=== PATIENT | male | born 1935 | race Caucasian/White ===

== ENCOUNTER 2021-09-16 00:59 | Emergency (ER) | payer MEDICARE ==
[2021-09-16 01:05] VITALS: BP 87/67
[2021-09-16] MEDS ORDERED: NS IV 1000 ML 1,000 ML IV ONE (01:15)
--- NOTE | 2021-09-16 01:30 | ED GU-Male ---
General Stated Complaint: CATHETER ISSUES Source: patient Exam Limitations: physical impairment (Patient with advanced dementia but answering simple questions and following simple commands) History of Present Illness Date Seen by Provider: Sep 16, 2021 Time Seen by Provider: 01:10 Initial Comments Per [facility]dc and EMS report, patient pulled out his catheter and they are concerned related to that. Does have bruising to the penis and testicles as well as the left leg after having tib-fib fracture and repair. He has chronic catheter for micturition and BPH. Patient does have history of hypotension and is on fludrocortisone. He is denying complaints currently. Does have some blood at the meatus. Timing/Duration: this morning Severity/Quality: mild (Bleeding and mild swelling without significant pain reported) Location: urethral Prior Genitourinary Problems: recent trauma Associated Symptoms: other (Hematuria noted) Allergies and Home Medications Allergies Coded Allergies: amoxicillin (Verified Allergy, Unknown, 09/16/21) clavulanic acid (Verified Allergy, Unknown, 09/16/21) famotidine (Verified Allergy, Unknown, 09/16/21) ketamine (Verified Allergy, Unknown, 09/16/21) lisinopril (Verified Allergy, Unknown, 09/16/21) rofecoxib (Verified Allergy, Unknown, 09/16/21) Patient Home Medication List Home Medication List Reviewed: Yes Review of Systems Review of Systems Constitutional: see HPI; No fever Genitourinary: see HPI, hematuria; denies pain; other (Penile swelling and bruising) Skin: change in color (Bruising left leg and scrotum) Review of systems limited due to patient's underlying mental status with advanced dementia. Past Zofbmze-Ahqiqb-Vedqmo Hx Patient Social History Tobacco Use?: No Past Medical History Surgeries: Yes Orthopedic Cardiac: Yes (Hypotension) Neurological: Yes Dementia Genitourinary: Yes Prostate Problems Family Medical History Reviewed and Corrections made Physical Exam Vital Signs Vital Signs - First Documented 09/16/21 01:05 Temp 36.8 Pulse 93 Resp 18 B/P (MAP) 87/67 (74) Pulse Ox 99 O2 Delivery Room Air Capillary Refill : Height, Weight, BMI Height: '" Weight: lbs. oz. kg; BMI Method: General Appearance: WD/WN, no apparent distress Neck: full range of motion, supple Cardiovascular: regular rate, rhythm, no murmur Respiratory: lungs clear, normal breath sounds Gastrointestinal: non tender, soft Male: other (Blood at meatus. Penile swelling. Ecchymosis noted to penis especially proximally into the scrotum.) Neurologic/Psychiatric: alert, other (Oriented to self only) Skin: warm/dry, ecchymosis (Ecchymosis as described above) Progress/Results/Core Measures Suspected Sepsis SIRS Temperature: Pulse: Respiratory Rate: Laboratory Tests 09/16/21 01:18: White Blood Count 14.7H Blood Pressure / Mean: Laboratory Tests 09/16/21 01:18: Creatinine 0.86, Platelet Count 275, Total Bilirubin 1.9H Results/Orders Lab Results Laboratory Tests Test 09/16/21 01:15 09/16/21 01:18 Range/Units Urine Color RED H Urine Clarity CLEAR Urine pH 6.5 5-9 Urine Specific English 1.025 H 1.016-1.022 Urine Protein 3+ H NEGATIVE Urine Glucose (UA) NEGATIVE NEGATIVE Urine Ketones 1+ H NEGATIVE Urine Nitrite POSITIVE H NEGATIVE Urine Bilirubin NEGATIVE NEGATIVE Urine Urobilinogen 2.0 < = 1.0 MG/DL Urine Leukocyte Esterase 2+ H NEGATIVE Urine RBC (Auto) 3+ H NEGATIVE Urine RBC 50-100 H /HPF Urine WBC 25-50 H /HPF Urine Squamous Epithelial Cells 0-2 /HPF Urine Crystals NONE /LPF Urine Bacteria LARGE H /HPF Urine Casts NONE /LPF Urine Mucus NEGATIVE /LPF Urine Culture Indicated YES White Blood Count 14.7 H 4.3-11.0 10^3/uL Red Blood Count 2.59 L 4.30-5.52 10^6/uL Hemoglobin 8.1 L 13.3-17.7 g/dL Hematocrit 25 L 40-54 % Mean Corpuscular Volume 96 80-99 fL Mean Corpuscular Hemoglobin 31 25-34 pg Mean Corpuscular Hemoglobin Concent 33 32-36 g/dL Red Cell Distribution Width 13.2 10.0-14.5 % Platelet Count 275 130-400 10^3/uL Mean Platelet Volume 9.7 9.0-12.2 fL Immature Granulocyte % (Auto) 1 % Neutrophils (%) (Auto) 86 H 42-75 % Lymphocytes (%) (Auto) 3 L 12-44 % Monocytes (%) (Auto) 9 0-12 % Eosinophils (%) (Auto) 1 0-10 % Basophils (%) (Auto) 0 0-10 % Neutrophils # (Auto) 12.7 H 1.8-7.8 10^3/uL Lymphocytes # (Auto) 0.5 L 1.0-4.0 10^3/uL Monocytes # (Auto) 1.3 H 0.0-1.0 10^3/uL Eosinophils # (Auto) 0.1 0.0-0.3 10^3/uL Basophils # (Auto) 0.0 0.0-0.1 10^3/uL Immature Granulocyte # (Auto) 0.2 H 0.0-0.1 10^3/uL Neutrophils % (Manual) 96 % Lymphocytes % (Manual) 1 % Monocytes % (Manual) 2 % Eosinophils % (Manual) 1 % Polychromasia SLIGHT Microcytosis SLIGHT Sodium Level 137 135-145 MMOL/L Potassium Level 3.5 L 3.6-5.0 MMOL/L Chloride Level 103 98-107 MMOL/L Carbon Dioxide Level 21 21-32 MMOL/L Anion Gap 13 5-14 MMOL/L Blood Urea Nitrogen 20 H 7-18 MG/DL Creatinine 0.86 0.60-1.30 MG/DL Estimat Glomerular Filtration Rate 84 BUN/Creatinine Ratio 23 Glucose Level 146 H 70-105 MG/DL Calcium Level 8.3 L 8.5-10.1 MG/DL Corrected Calcium 9.3 8.5-10.1 MG/DL Total Bilirubin 1.9 H 0.1-1.0 MG/DL Aspartate Amino Transf (AST/SGOT) 42 H 5-34 U/L Alanine Aminotransferase (ALT/SGPT) 29 0-55 U/L Alkaline Phosphatase 98 40-136 U/L Total Protein 4.8 L 6.4-8.2 GM/DL Albumin 2.7 L 3.2-4.5 GM/DL My Orders Orders - VICENTE JONES MD Cbc With Automated Diff (09/16/21 01:13) Comprehensive Metabolic Panel (09/16/21 01:13) Ua Culture If Indicated (09/16/21 01:13) Ed Iv/Invasive Line Start (09/16/21 01:13) Ns Iv 1000 Ml (Sodium Chloride 0.9%) (09/16/21 01:15) Manual Differential (09/16/21 01:18) Urine Culture (09/16/21 01:15) Ceftriaxone 1 Gm Pre-Mix (Rocephin 1 Gm (09/16/21 02:05) Medications Given in ED Current Medications Medications Dose Ordered Sig/Darek Route Start Time Stop Time Status Last Admin Dose Admin Sodium Chloride 1,000 ml @ 0 mls/hr Q0M ONCE IV 09/16/21 01:15 09/16/21 01:17 DC 09/16/21 01:30 1,000 MLS/HR Vital Signs/I&O 09/16/21 01:05 Temp 36.8 Pulse 93 Resp 18 B/P (MAP) 87/67 (74) Pulse Ox 99 O2 Delivery Room Air Capillary Refill : Progress Note : Progress Note Seen and evaluated. Initial blood pressure borderline with systolic blood pressure 90. He does have history of hypertension. He did pull his catheter out. Nurse was concerned about balloon entrapment although no indication of this. Does have blood at the meatus with some bloody drainage. We will replace the catheter due to this and check basic labs and give normal saline 1 L bolus to flush bladder of blood to prevent clots. We will also monitor for decreased bloody output. This did decrease rapidly after insertion of the August catheter. Monitor patient. 0330: UTI noted. Rocephin 1 g IV given. Over all his doing well and tolerating catheter well. He is a candidate for outpatient treatment. We will continue treatment of his urinary tract infection with cephalexin. Discharged back to [facility] with return precautions. Report given to [facility]. Departure Impression Primary Impression: Urinary tract infection Qualified Codes: N30.01 - Acute cystitis with hematuria Additional Impression: August catheter problem Qualified Codes: T83.9XXA - Unspecified complication of genitourinary prosthetic device, implant and graft, initial encounter Disposition: HOME, SELF-CARE Condition: Stable Departure-Patient Inst. Decision time for Depature: 03:31 Referrals: JOANN CORNELIUS MD (PCP/Family) Primary Care Physician Patient Instructions: How to Care for Your August Catheter, Male, Urinary Tract Infection, Adult ED Add. Discharge Instructions: Please frequently redirect resident to prevent pulling out catheter. Patient does have urinary tract infection and antibiotics were started in the emergency department. Please continue prescription as ordered. Follow-up with primary care doctor later this week or early next week for recheck and further evaluation. Encourage plenty of fluids. Return for worse pain, fever, vomiting, weakness, breathing problems or other concerns as needed. Scripts Cephalexin (Cephalexin) 500 Mg Capsule 500 MG PO BID for 5 Days, #10 CAP 0 Refills Prov: VICENTE JONES MD 09/16/21 VICENTE JONES MD Sep 16, 2021 01:30
[2021-09-16 01:32] LABS: BASOPHILS % (AUTO) 0 % (0-10); EOSINOPHILS # (AUTO) 0.1 10^3/uL (0.0-0.3); EOSINOPHILS % (AUTO) 1 % (0-10); HEMATOCRIT 25 % (40-54); HEMOGLOBIN 8.1 g/dL (13.3-17.7); LYMPHOCYTES # (AUTO) 0.5 10^3/uL (1.0-4.0); LYMPHOCYTES % (AUTO) 3 % (12-44); MEAN CORPUSCULAR HEMOGLOBIN 31 pg (25-34); MEAN CORPUSCULAR HGB CONC 33 g/dL (32-36); MEAN CORPUSCULAR VOLUME 96 fL (80-99); MEAN PLATELET VOLUME 9.7 fL (9.0-12.2); MONOCYTES # (AUTO) 1.3 10^3/uL (0.0-1.0); MONOCYTES % (AUTO) 9 % (0-12); NEUTROPHILS # (AUTO) 12.7 10^3/uL (1.8-7.8); NEUTROPHILS % (AUTO) 86 % (42-75); PLATELET COUNT 275 10^3/uL (130-400); WHITE BLOOD COUNT 14.7 10^3/uL (4.3-11.0)
[2021-09-16 01:36] LABS: BILIRUBIN,URINE NEGATIVE (NEGATIVE); CLARITY,URINE CLEAR; COLOR,URINE RED; GLUCOSE, URINE (UA) NEGATIVE (NEGATIVE); KETONES,URINE 1+ (NEGATIVE); LEUKOCYTE ESTERASE ,URINE 2+ (NEGATIVE); NITRITE,URINE POSITIVE (NEGATIVE); PH,URINE 6.5 (5-9); PROTEIN,URINE 3+ (NEGATIVE)
[2021-09-16 01:44] LABS: BACTERIA,URINE LARGE /HPF; RBC,URINE 50-100 /HPF; SQUAMOUS EPITHELIAL CELL,UR 0-2 /HPF; WBC,URINE 25-50 /HPF
[2021-09-16 01:55] LABS: ALBUMIN 2.7 GM/DL (3.2-4.5); POTASSIUM 3.5 MMOL/L (3.6-5.0)
[2021-09-16 01:56] LABS: CALCIUM 8.3 MG/DL (8.5-10.1)
[2021-09-16 01:58] LABS: TOTAL PROTEIN 4.8 GM/DL (6.4-8.2)
[2021-09-16 01:59] LABS: BILIRUBIN,TOTAL 1.9 MG/DL (0.1-1.0)
[2021-09-16 02:01] LABS: CREATININE SERUM 0.86 MG/DL (0.60-1.30)
[2021-09-16] MEDS ORDERED: cefTRIAXone 1 GM PRE-MIX 50 ML IV STA (02:05)
[2021-09-16 02:12] LABS: EOSINOPHILS % (MANUAL) 1 %; LYMPHOCYTES % (MANUAL) 1 %; MICROCYTOSIS SLIGHT; MONOCYTES % (MANUAL) 2 %; NEUTROPHILS % (MANUAL) 96 %; POLYCHROMASIA SLIGHT
[2021-09-16] MEDS ORDERED: CEPH500C PO (03:30)
== END 2021-09-16 05:32 | disposition home or self-care (01) ==
LOC: EDUNIT# 00:59 → ER 01:01
DX: S30.21XA Contusion of penis, initial encounter (principal); N39.0 Urinary tract infection, site not specified; T83.098A Other mechanical complication of other urinary catheter, initial encounter; F03.90 Unspecified dementia, unspecified severity, without behavioral disturbance, psychotic disturbance, mood disturbance, and anxiety; X58.XXXA Exposure to other specified factors, initial encounter
CPT/HCPCS: 36415; 80053; 81000; 85007; 85027; 87088

== ENCOUNTER 2021-11-05 05:24 | Inpatient (IN) | payer MEDICARE ==
[~2021-11-05] VITALS: Ht 185.4 cm; Wt 75.6 kg
[2021-11-05] VITALS (10 sets, daily range): BP systolic 91–151; BP diastolic 54–76
[~2021-11-05 05:24] MED LIST: CEPH500C PO
--- NOTE | 2021-11-05 06:44 | ED Lower Extremity ---
General Chief Complaint: Lower Extremity Stated Complaint: FALL Source: patient Exam Limitations: no limitations (KURTIS DIAZ MD) History of Present Illness Date Seen by Provider: Nov 05, 2021 Time Seen by Provider: 05:26 Initial Comments This 86-year-old gentleman presents to the emergency room with right proximal thigh pain after falling out of bed. He arrives via EMS from the [facility]. No other injuries identified. Patient has notable dementia and is hard of hearing. (KURTIS DIAZ MD) Allergies and Home Medications Allergies Coded Allergies: amoxicillin (Verified Allergy, Unknown, 09/16/21) clavulanic acid (Verified Allergy, Unknown, 09/16/21) famotidine (Verified Allergy, Unknown, 09/16/21) ketamine (Verified Allergy, Unknown, 09/16/21) lisinopril (Verified Allergy, Unknown, 09/16/21) rofecoxib (Verified Allergy, Unknown, 09/16/21) Patient Home Medication List Home Medication List Reviewed: Yes (KURTIS DIAZ MD) Cephalexin (Cephalexin) 500 Mg Capsule, 500 MG PO BID Prescribed by: VICENTE JONES on 09/16/21 0330 Review of Systems Constitutional: no symptoms reported EENTM: no symptoms reported Respiratory: no symptoms reported Cardiovascular: no symptoms reported Gastrointestinal: no symptoms reported Musculoskeletal: see HPI Skin: no symptoms reported Psychiatric/Neurological: See HPI (KURTIS DIAZ MD) Past Ufpzjhy-Lbqmwz-Taetwb Hx Patient Social History Tobacco Use?: No Use of E-Cig and/or Vaping dev: No Substance use?: No Alcohol Use?: No Pt feels they are or have been: No (KURTIS DIAZ MD) Immunizations Up To Date Influenza Vaccine Up-to-Date: Yes; Up-to-Date (KURTIS DIAZ MD) Past Medical History Surgeries: Yes Orthopedic Cardiac: Yes (Hypotension) Neurological: Yes Dementia Genitourinary: Yes Prostate Problems Gastrointestinal: No Musculoskeletal: No Endocrine: No HEENT: Yes Hearing Impairment: Hard of Hearing Cancer: No Psychosocial: No (KURTIS DIAZ MD) Physical Exam Vital Signs Vital Signs - First Documented 11/05/21 05:25 Temp 37.1 Pulse 100 Resp 18 B/P (MAP) 117/76 (90) Pulse Ox 98 O2 Delivery Room Air (VICENTE JONES MD) Vital Signs Capillary Refill : Less Than 3 Seconds (KURTIS DIAZ MD) Height, Weight, BMI Height: '" Weight: lbs. oz. kg; BMI Method: General Appearance: WD/WN, no apparent distress HEENT: PERRL/EOMI, normal ENT inspection Neck: normal inspection Cardiovascular: regular rate, rhythm, no edema, no murmur Respiratory: lungs clear, normal breath sounds, no respiratory distress Gastrointestinal: non tender, soft Back: normal inspection Hips: bilateral hip non-tender, bilateral hip normal inspection, bilateral hip other (No tenderness with palpation of the hip or pain with rotation of the hips) Legs: left leg non-tender; bilateral leg normal inspection; right leg other (Tenderness with palpation of the proximal right lateral thigh) Knees: bilateral knee non-tender, bilateral knee normal inspection, bilateral knee no evidence of injury Neurologic/Psychiatric: no motor/sensory deficits, alert Skin: normal color, warm/dry (KURTIS DIAZ MD) Progress/Results/Core Measures Results/Orders Lab Results Laboratory Tests Test 11/05/21 07:10 Range/Units White Blood Count 13.2 H 4.3-11.0 10^3/uL Red Blood Count 3.69 L 4.30-5.52 10^6/uL Hemoglobin 11.1 L 13.3-17.7 g/dL Hematocrit 35 L 40-54 % Mean Corpuscular Volume 94 80-99 fL Mean Corpuscular Hemoglobin 30 25-34 pg Mean Corpuscular Hemoglobin Concent 32 32-36 g/dL Red Cell Distribution Width 13.6 10.0-14.5 % Platelet Count 243 130-400 10^3/uL Mean Platelet Volume 10.1 9.0-12.2 fL Immature Granulocyte % (Auto) 1 % Neutrophils (%) (Auto) 86 H 42-75 % Lymphocytes (%) (Auto) 6 L 12-44 % Monocytes (%) (Auto) 7 0-12 % Eosinophils (%) (Auto) 0 0-10 % Basophils (%) (Auto) 0 0-10 % Neutrophils # (Auto) 11.3 H 1.8-7.8 10^3/uL Lymphocytes # (Auto) 0.8 L 1.0-4.0 10^3/uL Monocytes # (Auto) 0.9 0.0-1.0 10^3/uL Eosinophils # (Auto) 0.1 0.0-0.3 10^3/uL Basophils # (Auto) 0.1 0.0-0.1 10^3/uL Immature Granulocyte # (Auto) 0.1 0.0-0.1 10^3/uL Neutrophils % (Manual) 88 % Lymphocytes % (Manual) 6 % Monocytes % (Manual) 5 % Eosinophils % (Manual) 1 % Blood Morphology Comment NORMAL Sodium Level 142 135-145 MMOL/L Potassium Level 3.6 3.6-5.0 MMOL/L Chloride Level 105 98-107 MMOL/L Carbon Dioxide Level 23 21-32 MMOL/L Anion Gap 14 5-14 MMOL/L Blood Urea Nitrogen 15 7-18 MG/DL Creatinine 0.87 0.60-1.30 MG/DL Estimat Glomerular Filtration Rate 84 BUN/Creatinine Ratio 17 Glucose Level 123 H 70-105 MG/DL Calcium Level 8.7 8.5-10.1 MG/DL Corrected Calcium 9.4 8.5-10.1 MG/DL Total Bilirubin 0.7 0.1-1.0 MG/DL Aspartate Amino Transf (AST/SGOT) 17 5-34 U/L Alanine Aminotransferase (ALT/SGPT) 14 0-55 U/L Alkaline Phosphatase 181 H 40-136 U/L Total Protein 5.7 L 6.4-8.2 GM/DL Albumin 3.1 L 3.2-4.5 GM/DL (VICENTE JONES MD) My Orders Orders - VICENTE JONES MD Chest 1 View, Ap/Pa Only (11/05/21 06:50) Fentanyl Inj (Sublimaze Injection) (11/05/21 06:55) Cbc With Automated Diff (11/05/21 06:55) Comprehensive Metabolic Panel (11/05/21 06:55) Ed Iv/Invasive Line Start (11/05/21 06:55) Manual Differential (11/05/21 07:10) Fentanyl Inj (Sublimaze Injection) (11/05/21 07:32) Ekg Tracing (11/05/21 07:50) Ed Admission (Communication) (11/05/21 07:51) (VICENTE JONES MD) Vital Signs/I&O 11/05/21 05:25 Temp 37.1 Pulse 100 Resp 18 B/P (MAP) 117/76 (90) Pulse Ox 98 O2 Delivery Room Air (VICENTE JONES MD) Blood Pressure Mean: 90 Progress Progress Note : Progress Note 0650: Assumed care of the patient from Dr. Diaz pending x-ray. Monitor patient. 0740: We have given fentanyl 25 mcg IV and have repeated that with 50 mcg IV for pain. I have spoken with patient's daughter who is his durable power district attorney. I did let her know about the hip fracture on the right. She is agreeable to surgical intervention if required. I have paged Dr. Grider who is on-call. Pending his evaluation and callback. 0759: Patient has been accepted by medicine team, Dr. Tran for admission, inpatient status with Dr. Grider on consult. He would like to take him to surgery today if medically cleared. I have added EKG. Labs are pending. He is more comfortable currently. Admit to [facility] floor, inpatient status, n.p.o. (VICENTE JONES MD) Initial ECG Impression Date: Nov 05, 2021 Initial ECG Impression Time: 08:06 Initial ECG Rate: 78 Comment Sinus rhythm with leftward axis. No evidence of ST elevation MT. Interpreted by me. No previous available for comparison. (VICENTE JONES MD) Diagnostic Imaging Diagonstic Imaging: Xray Plain Films/CT/US/NM/MRI: femur Comments [facility] [place], [place] NAME: AYANA MCMULLEN [facility] REC#: [id number] PT STATUS: REG ER : 1935 PHYSICIAN: KURTIS DIAZ MD ADMIT DATE: 11/05/21/ER Draft Date of Exam:11/05/21 FEMUR, RIGHT, 2 VIEWS Right femur at 6:36. Indication: Fell AP and lateral views were obtained. There are no prior studies for comparison. There is a severely comminuted impacted intertrochanteric fracture of the right femur. The lesser trochanter has also been avulsed and the lesser trochanter fragment is fractured as well. In addition there is a 1.6 x 2.3 cm sclerotic focus in the intertrochanteric region. This bony lesion is of uncertain etiology although is most likely benign. I do not feel that this is a pathologic fracture. There is no acute bony abnormality noted otherwise. There is moderate degenerative disease of the hip joint and moderately severe degenerative disease of the medial compartment of the knee joint. There is also mild narrowing of the lateral compartment of the patellofemoral space. The soft tissues are unremarkable. IMPRESSION: 1. There is a comminuted impacted fracture of the the intertrochanteric region of the right femur. There is no acute bony abnormality noted otherwise. 2. The small sclerotic focus in the intertrochanteric region is of uncertain etiology although most likely benign. This fracture is not felt to be pathologic. Dictated on workstation # [id number] Dict: 11/05/21702 Trans: 11/05/21709 [id number] [id number] Interpreted by: YADI LIN MD Electronically signed by: Reviewed: Reviewed by Ne Diagonstic Imaging: Xray Plain Films/CT/US/NM/MRI: pelvis [facility] [place] [place] NAME: AYANA MCMULLEN [facility] REC#: [id number] PT STATUS: REG ER : 1935 PHYSICIAN: KURTIS DIAZ MD ADMIT DATE: 11/05/21/ER Signed Date of Exam:11/05/21 PELVIS Indication: Pelvic pain AP view pelvis shows an intertrochanteric fracture of the right hip. Patient's had prior internal fixation of left hip. Pelvic ring is intact. IMPRESSION: Comminuted intertrochanteric fracture of the right hip Dictated by: Dictated on workstation # [id number] Dict: 11/05/21703 Trans: 11/05/21704 TCB [id number] Interpreted by: VICENTE POWELL MD Electronically signed by: VICENTE POWELL MD 11/05/21704 Reviewed: Reviewed by Ne Diagonstic Imaging: Xray Plain Films/CT/US/NM/MRI: chest [facility] [place], [place] NAME: AYANA MCMULLEN [facility] REC#: [id number] PT STATUS: REG ER : 1935 PHYSICIAN: VICENTE JONES MD ADMIT DATE: 11/05/21/ER Signed Date of Exam:11/05/21 CHEST 1 VIEW, AP/PA ONLY INDICATION: Hip fracture Portable chest 7:44 AM Heart size and pulmonary vascularity are normal. Lungs are clear. There are no effusions or pneumothoraces. IMPRESSION: No acute abnormalities in the chest. Dictated by: Dictated on workstation # [id number] Dict: 11/05/21 0746 Trans: 11/05/21 0749 [facility] [id number] Interpreted by: VICENTE POWELL MD Electronically signed by: VICENTE POWELL MD 11/05/21 0749 (VICENTE JONES MD) Departure Communication (Admissions) Time/Spoke to Admitting Phy: 07:49 Time/Spoke to Consulting Phy: 07:41 (VICENTE JONES MD) Impression Primary Impression: Hip fracture Qualified Codes: S72.001A - Fracture of unspecified part of neck of right femur, initial encounter for closed fracture Disposition: ADMITTED INPATIENT Condition: Stable Admissions Decision to Admit Reason: Admit from ER (General) Decision to Admit/Date: Nov 05, 2021 Time/Decision to Admit Time: 07:41 (VICENTE JONES MD) Departure-Patient Inst. Referrals: JOANN CORNELIUS MD (PCP/Family) Primary Care Physician KURTIS DIAZ MD Nov 05, 2021 06:44 VICENTE JONES MD Nov 05, 2021 07:49
[2021-11-05] MEDS ORDERED: fentaNYL INJ 100 MCG/2 ML AMP IVP STA ×2 (06:55→07:32)
--- NOTE | 2021-11-05 07:06 | Diagnostic Imaging Report ---
Indication: Pelvic pain AP view pelvis shows an intertrochanteric fracture of the right hip. Patient's had prior internal fixation of left hip. Pelvic ring is intact. IMPRESSION: Comminuted intertrochanteric fracture of the right hip Dictated by: Dictated on workstation # [id number]
--- NOTE | 2021-11-05 07:10 | Diagnostic Imaging Report ---
Right femur at 6:36. Indication: Fell AP and lateral views were obtained. There are no prior studies for comparison. There is a severely comminuted impacted intertrochanteric fracture of the right femur. The lesser trochanter has also been avulsed and the lesser trochanter fragment is fractured as well. In addition there is a 1.6 x 2.3 cm sclerotic focus in the intertrochanteric region. This bony lesion is of uncertain etiology although is most likely benign. I do not feel that this is a pathologic fracture. There is no acute bony abnormality noted otherwise. There is moderate degenerative disease of the hip joint and moderately severe degenerative disease of the medial compartment of the knee joint. There is also mild narrowing of the lateral compartment of the patellofemoral space. The soft tissues are unremarkable. IMPRESSION: 1. There is a comminuted impacted fracture of the the intertrochanteric region of the right femur. There is no acute bony abnormality noted otherwise. 2. The small sclerotic focus in the intertrochanteric region is of uncertain etiology although most likely benign. This fracture is not felt to be pathologic. Dictated by: Dictated on workstation # [id number]
[2021-11-05 07:20] LABS: BASOPHILS # (AUTO) 0.1 10^3/uL (0.0-0.1); BASOPHILS % (AUTO) 0 % (0-10); EOSINOPHILS # (AUTO) 0.1 10^3/uL (0.0-0.3); EOSINOPHILS % (AUTO) 0 % (0-10); HEMATOCRIT 35 % (40-54); HEMOGLOBIN 11.1 g/dL (13.3-17.7); LYMPHOCYTES # (AUTO) 0.8 10^3/uL (1.0-4.0); LYMPHOCYTES % (AUTO) 6 % (12-44); MEAN CORPUSCULAR HEMOGLOBIN 30 pg (25-34); MEAN CORPUSCULAR HGB CONC 32 g/dL (32-36); MEAN CORPUSCULAR VOLUME 94 fL (80-99); MEAN PLATELET VOLUME 10.1 fL (9.0-12.2); MONOCYTES # (AUTO) 0.9 10^3/uL (0.0-1.0); MONOCYTES % (AUTO) 7 % (0-12); NEUTROPHILS # (AUTO) 11.3 10^3/uL (1.8-7.8); NEUTROPHILS % (AUTO) 86 % (42-75); PLATELET COUNT 243 10^3/uL (130-400); WHITE BLOOD COUNT 13.2 10^3/uL (4.3-11.0)
[2021-11-05 07:42] LABS: ALBUMIN 3.1 GM/DL (3.2-4.5); BILIRUBIN,TOTAL 0.7 MG/DL (0.1-1.0); CALCIUM 8.7 MG/DL (8.5-10.1); CREATININE SERUM 0.87 MG/DL (0.60-1.30); POTASSIUM 3.6 MMOL/L (3.6-5.0); TOTAL PROTEIN 5.7 GM/DL (6.4-8.2)
--- NOTE | 2021-11-05 07:48 | Diagnostic Imaging Report ---
INDICATION: Hip fracture Portable chest 7:44 AM Heart size and pulmonary vascularity are normal. Lungs are clear. There are no effusions or pneumothoraces. IMPRESSION: No acute abnormalities in the chest. Dictated by: Dictated on workstation # [id number]
[2021-11-05 08:14] LABS: EOSINOPHILS % (MANUAL) 1 %; LYMPHOCYTES % (MANUAL) 6 %; MONOCYTES % (MANUAL) 5 %; NEUTROPHILS % (MANUAL) 88 %
[2021-11-05 08:15] LABS: RBC MORPH NORMAL
[2021-11-05] MEDS ORDERED: CLINDAMYCIN 600 MG/50 ML IVPB 50 ML IV ONE (09:30)
[2021-11-05] MEDS ORDERED: ONDANSETRON 4 MG/2 ML (SDV) Z0FRAN IV PRN (09:45)
[2021-11-05] MEDS ORDERED: ANTACID SUSP 30 ML UDC (MYLANTA) PO PRN (09:45)
[2021-11-05] MEDS ORDERED: MELATONIN 3 MG TABLET PO PRN (09:45)
[2021-11-05] MEDS ORDERED: fentaNYL INJ 100 MCG/2 ML AMP IVP PRN (09:45)
[2021-11-05] MEDS ORDERED: ONDANSETRON 4 MG (ZOFRAN) ORAL DISSOLVE TAB PO PRN (09:45)
[2021-11-05] MEDS ORDERED: polyethylene glycoL POWDER 17 GM (MIRALAX) PACK PO PRN (09:45)
[2021-11-05] MEDS ORDERED: LACTATED RINGERS 1,000 ML IV SCH (09:45)
--- NOTE | 2021-11-05 10:06 | Consultation - Ortho ---
Consult - Ortho Subjective Date of Exam 11/05/21 Chief Complaint Right Hip Pain HPI/Events since last exam correction resident presented to ER after fall; ER evaluation found a displaced right intertrochanteric femur fracture. I was consulted to manage the fracture. Medical, Surgical History Surgeries: Yes Orthopedic Cardiac: Yes (Hypotension) Neurological: Yes Dementia Genitourinary: Yes Prostate Problems Gastrointestinal: No Musculoskeletal: No Endocrine: No HEENT: Yes Hearing Impairment: Hard of Hearing Cancer: No Psychosocial: No Social History Nonsmoker Family History Noncontributory Review of Systems - Allergies: Coded Allergies: amoxicillin (Verified Allergy, Unknown, 09/16/21) clavulanic acid (Verified Allergy, Unknown, 09/16/21) famotidine (Verified Allergy, Unknown, 09/16/21) ketamine (Verified Allergy, Unknown, 09/16/21) lisinopril (Verified Allergy, Unknown, 09/16/21) rofecoxib (Verified Allergy, Unknown, 09/16/21) Home Meds Active Scripts Cephalexin (Cephalexin) 500 Mg Capsule, 500 MG PO BID for 5 Days, #10 CAP 0 Refills Prov:VICENTE JONES MD 09/16/21 Objective Exam Right Hip: Skin intact, some shortening of limb, +DF of ankle, sensation grossly intact to light touch, distal pulses palpable Vital Signs Vital Signs Date Time Temp Pulse Resp B/P (MAP) Pulse Ox O2 Delivery O2 Flow Rate FiO2 11/05/21 09:38 36.4 80 20 94/55 (68) 99 Room Air 11/05/21 05:25 37.1 100 18 117/76 (90) 98 Room Air Lab Results Laboratory Tests 11/05/21 07:10: White Blood Count 13.2H, Red Blood Count 3.69L, Hemoglobin 11.1L, Hematocrit 35L , Mean Corpuscular Volume 94, Mean Corpuscular Hemoglobin 30, Mean Corpuscular Hemoglobin Concent 32, Red Cell Distribution Width 13.6, Platelet Count 243, Mean Platelet Volume 10.1, Immature Granulocyte % (Auto) 1, Neutrophils (%) (Auto) 86H, Lymphocytes (%) (Auto) 6L, Monocytes (%) (Auto) 7, Eosinophils (%) (Auto) 0, Basophils (%) (Auto) 0, Neutrophils # (Auto) 11.3H, Lymphocytes # (Auto) 0.8L, Monocytes # (Auto) 0.9, Eosinophils # (Auto) 0.1, Basophils # (Auto) 0.1, Immature Granulocyte # (Auto) 0.1, Neutrophils % (Manual) 88, Lymphocytes % (Manual) 6, Monocytes % (Manual) 5, Eosinophils % (Manual) 1, Blood Morphology Comment NORMAL, Sodium Level 142, Potassium Level 3.6, Chloride Level 105, Carbon Dioxide Level 23, Anion Gap 14, Blood Urea Nitrogen 15, Creatinine 0.87, Estimat Glomerular Filtration Rate 84, BUN/Creatinine Ratio 17, Glucose Level 123H, Calcium Level 8.7, Corrected Calcium 9.4, Total Bilirubin 0.7, Aspartate Amino Transf (AST/SGOT) 17, Alanine Aminotransferase (ALT/SGPT) 14, Alkaline Phosphatase 181H, Total Protein 5.7L, Albumin 3.1L Imaging X-rays from ER were reviewed and demonstrated a displaced right intertrochanteric femur fracture Assessment and Plan Assessment Displaced Right Intertrochanteric Femur Fracture Problem List Displaced Right Intertrochanteric Femur Fracture Plan I have recommended proceeding with reduction and fixation of the right IT fracture. Nature of the procedure, postoperative course, risks, and benefits were discussed with the patient's daughter who is his DPOA. Consent to be obtained. Plan to proceed with fixation today if medically ready. Final Diagonsis Displaced Right Intertrochanteric Femur Fracture Level of the visit: Level 3 (preop) ANIL MUJICA MD Nov 05, 2021 10:06
[2021-11-05] MEDS ORDERED: proPOfol 200 MG/20 ML (DIPRIVAN) VIAL IV ONE (10:25)
[2021-11-05] MEDS ORDERED: LACTATED RINGERS 1,000 ML IV PRN (10:30)
[2021-11-05] MEDS ORDERED: BUPIVACAINE 0.5% 30 ML (SENSORCAINE) VIAL ONE (11:27)
[2021-11-05] MEDS ORDERED: PHENYLEPHRINE 100 MCG/ML 10 ML (ANESTHESIA) SYR ONE (11:38)
--- NOTE | 2021-11-05 11:39 | Operative Report - Ortho ---
Operative Report Surgeon (s)/Patternmaker All Around (s) Surgeon ANIL MUJICA MD Patternmaker All Around n/a Pre-Operative Diagnosis Right Intertrochanteric Femur Fracture Post-Operative Diagnosis same Operative Report Date of Procedure: Nov 05, 2021 Name of Procedure Performed: Intramedullary Nailing of Right Intertrochanteric Femur Fracture Description & Findings After obtaining informed consent and marking the patient in the preoperative holding area, the patient was administered IV antibiotics and taken to the operating room. Anesthesia was induced. Patient was transferred to the fracture table. Surgical timeout was taken. The right lower extremity was placed in the traction spar and the left leg was placed in the well leg leyva. Reduction of the fracture was performed using traction and external rotation; C- arm was used to verify the reduction. The right lower extremity was prepped and draped in the usual sterile fashion. Incision was made just proximal to the greater trochanter. Blunt dissection was performed down to the tip of the trochanter. A guide wire was placed through a trochanteric entry point. Position of the wire was confirmed using C-arm. An entry reamer was then placed over the guidewire and reamed to the level of the lesser trochanter. A trochanteric gamma nail with a 125 degree angle was selected and assembled on the back table. Nail was inserted through the trochanteric entry point and seated by hand. Position of the nail was confirmed using C-arm. A guide wire was placed for the cephalomedullary screw. Version of the wire was obtained on the lateral. Measurement was taken and the reamer was set to 115 mm. Reamer was used over the guidewire and then the cephalomedullary screw was placed. Position of the cephalomedullary screw was confirmed on C-arm. Set screw was then tightened onto the cephalomedullary scre w and then backed off 1/4 turn. Attention was then turned to the distal screw and using the provided guides, a 40 mm screw was placed through the static portion of the distal slot. Final C arm images were obtained, demonstrated appropriate placement of hardware with adequate reduction, and were transferred to PACS. Incision sites were irrigated with normal saline. Closed subcutaneously with 2- 0 vicryl and skin was closed with kiet. Dressed with xeroform, 4x4s, ABD, and tape. Patient tolerated the procedure well and was stable to the recovery room. Anesthesia Type Spinal Estimated Blood Loss 100 mL Specimen(s) collected/removed None ANIL MUJICA MD Nov 05, 2021 11:39
--- NOTE | 2021-11-05 11:49 | Diagnostic Imaging Report ---
INDICATION: Fluoroscopy for right hip surgery. Fluoroscopy was provided in the OR during right hip surgery. 65 seconds of fluoroscopic time was utilized. Four images were obtained and demonstrate intramedullary karine and compression screw transfixing the right hip fracture. Alignment is anatomic. IMPRESSION: Fluoroscopy for right hip ORIF. Dictated by: Dictated on workstation # [id number]
--- NOTE | 2021-11-05 11:53 | Occ Therapy Progress Note ---
Therapy Progress Note OT orders received. Pt admitted with hip fx, s/p R IM nail. Pt had surgery on this date. OT will complete evaluation and assess pt on Monday11/08/21. SHEILA BARRAGAN OT Nov 05, 2021 11:53
[2021-11-05] MEDS ORDERED: FERR-84 PO (12:11)
[2021-11-05] MEDS ORDERED: TRAZ-227 PO (12:11)
[2021-11-05] MEDS ORDERED: TMSL.4C PO (12:11)
[2021-11-05] MEDS ORDERED: MEMA10TA2 PO (12:11)
[2021-11-05] MEDS ORDERED: DONE10TA12 PO (12:11)
[2021-11-05] MEDS ORDERED: FLDR.1T PO (12:11)
[2021-11-05] MEDS ORDERED: ACET-2422 PO (12:11)
[2021-11-05] MEDS ORDERED: ASPI81TA16 PO (12:11)
[2021-11-05] MEDS ORDERED: MAGN400O7 PO (12:11)
[2021-11-05] MEDS ORDERED: DOCU100T2 PO (12:11)
--- NOTE | 2021-11-05 14:35 | Physical Therapy Progress Note ---
Therapy Progress Note PT received orders for evaluation. Patient is awake and alert and agreeable to participate but his spinal is still working well and he cannot move either leg at this time. Will start in the morning. EVAN COOLEY PT Nov 05, 2021 14:35
--- NOTE | 2021-11-05 16:40 | Anesthesia-General Post-Op ---
General Patient Condition Mental Status/LOC: Same as Preop Cardiovascular: Satisfactory Nausea/Vomiting: Absent Respiratory: Satisfactory Pain: Controlled Complications: Absent Post Op Complications Complications None Follow Up Care/Instructions Patient Instructions None needed. Anesthesia/Patient Condition Patient Condition Patient is doing well, no complaints, stable vital signs, no apparent adverse anesthesia problems. No complications reported per nursing. LUIS BARNHART CRNA Nov 05, 2021 16:39
[2021-11-05] MEDS: ACETAMINOPHEN 325 MG TABLET PO PRN (17:23)
--- NOTE | 2021-11-05 18:33 | History & Physical-Hospitalist ---
History of Present Illness HPI/Chief Complaint James Johnson is an 86 year old male with PMH dementia, BPH, who lives at [facility] and fell from bed. He does not remember what happened. He denies pain. He denies trouble breathing. He has been in his normal state of health. He has no complaints or concerns. Source: patient Exam Limitations: no limitations Date Seen 11/05/21 Time Seen by a Provider: 12:00 Attending Physician Vita Eller MD PCP Chano Apple MD Referring Physician Date of Admission Nov 05, 2021 at 07:56 Home Medications & Allergies Home Medications Reviewed patient Home Medication Reconciliation performed by pharmacy medication reconciliations retail maintenance technician and/or nursing. Patients Allergies have been reviewed. Allergies Allergies Coded Allergies amoxicillin (Verified Allergy, Unknown, 09/16/21) clavulanic acid (Verified Allergy, Unknown, 09/16/21) famotidine (Verified Allergy, Unknown, 09/16/21) ketamine (Verified Allergy, Unknown, 09/16/21) lisinopril (Verified Allergy, Unknown, 09/16/21) rofecoxib (Verified Allergy, Unknown, 09/16/21) Past Gqhdljz-Zsfzvw-Hwwntd Hx Patient Social History Tobacco Use?: No Use of E-Cig and/or Vaping dev: No Substance use?: No Alcohol Use?: No Pt feels they are or have been: No Current Status Advance Directives: Yes Advance Directive Location: Copy placed in chart Communicates: Verbally Primary Language: Mauritanian Preferred Spoken Language: Mauritanian Is interpretation needed?: No Sensory deficits: Hearing impairment Additional sensory deficits: CARE HOME SUPPOSED TO ARRANGE BRING HEARING AID ONE Implanted or Applied Medical D: None Past Medical History Surgeries: Orthopedic Currently Using CPAP: No Currently Using BIPAP: No Dementia Prostate Problems Hearing Impairment: Hard of Hearing Family Medical History No Pertinent Family Hx Review of Systems Constitutional: no symptoms reported, see HPI Physical Exam Physical Exam Vital Signs Vital Signs - First Documented 11/05/21 05:25 Temp 37.1 Pulse 100 Resp 18 B/P (MAP) 117/76 (90) Pulse Ox 98 O2 Delivery Room Air Capillary Refill : Less Than 3 SecondsLess Than 3 Seconds Height, Weight, BMI Height: '" Weight: lbs. oz. kg; 21.99 BMI Method: General Appearance: No Apparent Distress, WD/WN HEENT: PERRL/EOMI, Pharynx Normal Neck: Normal Inspection, Supple Respiratory: Lungs Clear, Normal Breath Sounds, No Respiratory Distress Cardiovascular: Regular Rate, Rhythm, No Edema, No Murmur Gastrointestinal: Normal Bowel Sounds, Non Tender, Soft Extremity: Normal Inspection, Non Tender, No Pedal Edema Neurologic/Psychiatric: Alert, No Motor/Sensory Deficits Skin: Normal Color, Warm/Dry Results Results/Procedures Labs Laboratory Tests 11/05/21 07:10 Patient resulted labs reviewed. Imaging: Reviewed Imaging Report Assessment/Plan Admission Diagnosis Hip fracture Admission Status: Inpatient Order (span 2 midnights) Reason for Inpatient Admission: Hip surgery Assessment and Plan Closed comminuted intertrochanteric fracture of left femur Orthopedic surgery consulted s/p intramedullary nailing 11/05 Pain regimen Bowel regimen Incentive spirometry PT/OT Social work consult BPH Dementia Advanced age Continue home meds DVT prophylaxis: Lovenox Diagnosis/Problems Diagnosis/Problems (1) Closed comminuted intertrochanteric fracture of right femur Status: Acute Qualifiers: Encounter type: initial encounter Qualified Codes: S72.141A - Displaced intertrochanteric fracture of right femur, initial encounter for closed fracture (2) BPH (benign prostatic hyperplasia) Status: Chronic (3) Dementia Status: Chronic (4) Advanced age Status: Chronic VITA ELLER MD Nov 05, 2021 18:33
[2021-11-05] MEDS: DOCUSATE SODIUM 100 MG (COLACE) CAP PO SCH (21:00)
[2021-11-05] MEDS: FLUDROCORTISONE 0.1 MG (FLORINEF) TAB PO SCH (21:00)
[2021-11-05] MEDS: traZODone 100 MG (DESYREL) TAB PO SCH (21:00)
[2021-11-05] MEDS: SENNA W/DOCUSATE (SENOKOT S) TABLET PO SCH (21:00)
[2021-11-05] MEDS: DONEPEZIL 10 MG (ARICEPT) TAB PO SCH (21:00)
[2021-11-05] MEDS: MEMANTINE 10 MG (NAMENDA) TABLET PO SCH (21:00)
[2021-11-05] MEDS: TAMSULOSIN 0.4 MG (FLOMAX) CAP PO SCH (21:00)
[2021-11-06] VITALS (7 sets, daily range): BP systolic 91–131; BP diastolic 54–68
[2021-11-06 07:25] LABS: BASOPHILS % (AUTO) 0 % (0-10); EOSINOPHILS % (AUTO) 0 % (0-10); HEMATOCRIT 29 % (40-54); HEMOGLOBIN 8.9 g/dL (13.3-17.7); LYMPHOCYTES # (AUTO) 0.8 10^3/uL (1.0-4.0); LYMPHOCYTES % (AUTO) 7 % (12-44); MEAN CORPUSCULAR HEMOGLOBIN 29 pg (25-34); MEAN CORPUSCULAR HGB CONC 31 g/dL (32-36); MEAN CORPUSCULAR VOLUME 94 fL (80-99); MEAN PLATELET VOLUME 10.4 fL (9.0-12.2); MONOCYTES # (AUTO) 1.1 10^3/uL (0.0-1.0); MONOCYTES % (AUTO) 10 % (0-12); NEUTROPHILS # (AUTO) 9.3 10^3/uL (1.8-7.8); NEUTROPHILS % (AUTO) 82 % (42-75); PLATELET COUNT 202 10^3/uL (130-400); WHITE BLOOD COUNT 11.4 10^3/uL (4.3-11.0)
--- NOTE | 2021-11-06 07:37 | Progress Note - Ortho ---
Progress Note Subjective Date of Exam 11/06/21 Chief Complaint POD #1 s/p IM nailing of R IT Femur Fx HPI/Events since last exam without complaints, appears comfortable Review of Systems - Allergies: Coded Allergies: amoxicillin (Verified Allergy, Unknown, 09/16/21) clavulanic acid (Verified Allergy, Unknown, 09/16/21) famotidine (Verified Allergy, Unknown, 09/16/21) ketamine (Verified Allergy, Unknown, 09/16/21) lisinopril (Verified Allergy, Unknown, 09/16/21) rofecoxib (Verified Allergy, Unknown, 09/16/21) Home Meds Reported Medications Magnesium Hydroxide (Milk of Magnesia) 400 Mg/5 Ml Oral.susp, 30 ML PO BID PRN for CONSTIPATION-7TH LINE, ML 11/05/21 Tamsulosin HCl (Flomax) 0.4 Mg Cap, 0.8 MG PO HS, CAP TAKES 2 (0.4MG) CAPS 11/05/21 Trazodone HCl (Trazodone HCl) 100 Mg Tablet, 100 MG PO HS, TAB 11/05/21 Memantine HCl (Namenda) 10 Mg Tablet, 20 MG PO HS, TAB TAKES 2 (10MG) TABS 11/05/21 Donepezil HCl (Aricept) 10 Mg Tablet, 10 MG PO HS, TAB 11/05/21 Acetaminophen (Acetaminophen ER) 650 Mg Tablet.er, 650 MG PO Q6H PRN for PAIN- MILD (1-4), TAB 11/05/21 Aspirin (Low Dose Aspirin EC) 81 Mg Tablet.dr, 81 MG PO DAILY, TAB 11/05/21 Fludrocortisone Acetate (Fludrocortisone Acetate) 0.1 Mg Tab, 0.1 MG PO HS, TAB 11/05/21 Docusate Sodium (Docusate Sodium) 100 Mg Tablet, 100 MG PO DAILY, TAB 11/05/21 Ferrous Sulfate (Iron) 325 Mg Tablet, 325 MG PO DAILY, TAB 11/05/21 Discontinued Scripts Cephalexin (Cephalexin) 500 Mg Capsule, 500 MG PO BID for 5 Days, #10 CAP 0 Refills Prov:VICENTE JONES MD 09/16/21 Objective Exam R Hip: Dressing C/D/I, +DF of ankle, no s/s of DVT Vital Signs Vital Signs Date Time Temp Pulse Resp B/P (MAP) Pulse Ox O2 Delivery O2 Flow Rate FiO2 11/06/21 03:24 37.7 91 20 125/56 (79) 93 11/06/21 00:31 37.5 74 18 98/61 (73) 94 Room Air 11/05/21 21:05 Room Air 11/05/21 19:42 37.4 91 19 112/57 (75) 98 Room Air 11/05/21 17:00 37.1 91 20 151/73 (99) 99 Room Air 11/05/21 12:40 Room Air 11/05/21 12:40 37.0 20 111/67 (82) 98 Room Air 11/05/21 12:30 Room Air 11/05/21 12:30 20 110/67 (81) 98 Room Air 11/05/21 12:20 20 103/57 (72) 96 Room Air 11/05/21 12:15 Room Air 11/05/21 12:10 20 101/76 (84) 94 Room Air 11/05/21 12:00 20 101/55 (70) 98 OxyMask 4 11/05/21 12:00 OxyMask 3 11/05/21 11:50 20 99/56 (70) 100 OxyMask 4 11/05/21 11:44 OxyMask 5 11/05/21 11:44 37.7 20 91/54 (66) 100 OxyMask 5 11/05/21 10:54 Room Air 11/05/21 09:38 36.4 80 20 94/55 (68) 99 Room Air 11/05/21 09:07 37.1 80 18 123/56 96 Room Air I & O 11/06/21 07:00 Intake Total 3258 ml Output Total 1550 ml Balance 1708 ml Lab Results Laboratory Tests 11/06/21 06:18: White Blood Count 11.4H, Red Blood Count 3.04L, Hemoglobin 8.9L, Hematocrit 29L, Mean Corpuscular Volume 94, Mean Corpuscular Hemoglobin 29, Mean Corpuscular Hemoglobin Concent 31L, Red Cell Distribution Width 13.9, Platelet Count 202, Mean Platelet Volume 10.4, Immature Granulocyte % (Auto) 1, Neutrophils (%) (Auto) 82H, Lymphocytes (%) (Auto) 7L, Monocytes (%) (Auto) 10, Eosinophils (%) (Auto) 0, Basophils (%) (Auto) 0, Neutrophils # (Auto) 9.3H, Lymphocytes # (Auto) 0.8L, Monocytes # (Auto) 1.1H, Eosinophils # (Auto) 0.0, Basophils # (Auto) 0.0, Immature Granulocyte # (Auto) 0.1 Assessment and Plan Assessment Right Intertrochanteric Femur Fracture s/p Intramedullary Nailing Problem List Right Intertrochanteric Femur Fracture s/p Intramedullary Nailing Plan PT/OT DVT Prophylaxis Assume return to long-term when in accepting condition Final Diagonsis Right Intertrochanteric Femur Fracture s/p Intramedullary Nailing Level of the visit: Level 3 (postop global) ANIL MUJICA MD Nov 06, 2021 07:37
[2021-11-06 07:43] LABS: CREATININE SERUM 0.77 MG/DL (0.60-1.30); POTASSIUM 3.3 MMOL/L (3.6-5.0)
--- NOTE | 2021-11-06 08:29 | Physical Therapy Evaluation ---
PT Evaluation-General Medical Diagnosis Admission Date Nov 05, 2021 at 07:56 Medical Diagnosis: Right femur fracture Onset Date: Nov 05, 2021 Therapy Diagnosis Therapy Diagnosis: Gait deficit, strength deficit Precautions Precautions/Isolations: Fall Prevention, Standard Precautions Weight Bear Status Right Lower Extremity: Right Weight Bearing/Tolerated Left Lower Extremity: Left Full Weight Bearing Referral Physician: Dr. Grider Reason for Referral: Evaluation/Treatment Social History Home: Snf Prior Prior Level of Function SCALE: Activities may be completed with or without assistive devices. 1-Rxecybzjcw-vtkyzbr completes the activity by him/herself with no assistance from a helper. 5-Set-up or Clean-up Assistance-helper sets up or cleans up; patient completes activity. [place] assists only prior to or following the activity. 4-Supervision or Touching Assistance-helper provides verbal cues and/or touchi ng/steadying and/or contact guard assistance as patient completes activity. Assistance may be provided throughout the activity or intermittently. 3-Partial/Moderate Assistance-helper does LESS THAN HALF the effort. [place] lifts, holds or supports trunk or limbs, but provides less than half the effort. 2-Substantial/Maximal Assistance-helper does MORE THAN HALF the effort. [place] lifts or holds trunk or limbs and provides more than half the effort. 8-Ptfzmnfbm-bioeyr does ALL the effort. Patient does none of the effort to complete the activity. Or, the assistance of 2 or more helpers is required for the patient to complete the activity. If activity was not attempted, code reason: 7-Patient Refused. 9-Not Applicable-not attempted and the patient did not perform the activity before the current illness, exacerbation or injury. 10-Not Attempted due to Environmental Limitations-(lack of equipment, weather restraints, etc.). 88-Not Attempted due to Medical Conditions or Safety Concerns. Bed Mobility: 3 Transfers (B,C,W/C): 3 Gait: 3 Patient admits he is a poor historian, states "I can't remember anything." He reports that he was able to get out of bed and ambulate short distances, but ne eded help from staff. PT Evaluation-Current Subjective Patient lying supine in bed upon PT arrival, agreeable to treatment. Patient reports "I have no idea where I am or why I'm here." Objective Patient Orientation: Person ROM/Strength ROM Lower Extremities Right hip limited by pain to all AROM; right knee appears to display mild flexion contracture ~10 degrees, however this may be muscle guarding due to pa in. Patient withdraws right LE when attempting to measure. Left LE appears WFLs all planes. Strength Lower Extremities Right hip N/A; Right knee and ankle 3/5 throughout Left LE 4-/5 throughout Sensory Vision: Functional Hearing: Impaired Sensation Right Lower Extremit: Intact Sensation Left Lower Extremity: Intact Transfers Roll Left to Right (QC): 2 Sit to Lying (QC): 3 Lying to Sitting/Side of Bed(Q: 2 Sit to Stand (QC): 2 Chair/Bfa-of-Jwndu Xfer(QC): 1 Gait Does the Patient Walk?: No and Walking Goal IS indicated Mode of Locomotion: Both Anticipated Mode of Locomotion: Both Wheelchair Training Does the Pt Use a Wheelchair?: Yes Reports he uses a W/C for most mobility at the MS, however patient is unreliable historian. Balance Sitting Static: Good Sitting Dynamic: Fair Standing Static: Poor Standing Dynamic: Poor Assessment/Needs Patient very pleasant and agreeable to treatment. He puts forth good effort given pain in right LE and probable previous decline in function. He requires mod to max A for all bed mobility and transfers. He attempts to stand using the FWW, however is unable to initiate movement from the bed. Required SPT from bed to chair and was able to bear minimal weight in LEs. Patient in chair post treatment with all needs met, nursing notified, call light in hand, chair alarm activated. Rehab Potential: Guarded PT Short Term Goals Short Term Goals Time Frame: Nov 12, 2021 Roll Left & Right: 4 Sit to lyin Lying to sitting on side of be: 4 Sit to stand: 4 Chair/ngk-sz-cbfbw transfer: 4 Toilet transfer: 4 Walk 10 feet: 3 Walk 50 feet with two turns: 3 PT Supervisor Capacitor Processing Goals Supervisor Capacitor Processing Goals PT Supervisor Capacitor Processing Goals Time Frame: Nov 19, 2021 Roll Left & Right (QC): 4 Sit to Lying (QC): 4 Lying-Sitting on Side/Bed(QC): 4 Sit to Stand (QC): 4 Chair/Ons-lq-Ntfoa Xfer(QC): 4 Toilet Transfer (QC): 4 Does the Patient Walk: No and Walking Goal IS indicated Walk 10 feet (QC): 4 PT Plan Problem List Problem List: Activity Tolerance, Functional Strength, Safety, Balance, Gait, Transfer, Bed Mobility, ROM Treatment/Plan Treatment Plan: Continue Plan of Care Treatment Plan: Bed Mobility, Education, Functional Activity Hermelinda, Functional Strength, Gait, Safety, Therapeutic Exercise, Transfers Treatment Duration: Dec 03, 2021 Frequency: 11 times per week Estimated Hrs Per Day: .25 hour per day Patient and/or Family Agrees t: Yes Safety Risks/Education Patient Education: Gait Training, Transfer Techniques, Reviewed Precautions, Safety Issues Teaching Recipient: Patient Teaching Methods: Demonstration, Discussion Response to Teaching: Reinforcement Needed Discharge Recommendations Target Placement Return to assisted Time/GCodes Time In: 800 Time Out: 820 Total Billed Treatment Time: 20 Total Billed Treatment JOANN Alejandro PT Nov 06, 2021 08:29
[2021-11-06] MEDS: SENNA W/DOCUSATE (SENOKOT S) TABLET PO SCH ×2 (08:40→21:19)
[2021-11-06] MEDS: ENOXAPARIN 30 MG/0.3 ML (LOVENOX) SYR SC SCH ×2 (08:40→21:19)
[2021-11-06] MEDS: DOCUSATE SODIUM 100 MG (COLACE) CAP PO SCH ×2 (08:40→21:19)
--- NOTE | 2021-11-06 18:29 | Progress Note - Hospitalist ---
Subjective HPI/CC On Admission Date Seen by Provider: Nov 06, 2021 Time Seen by Provider: 11:30 James Johnson is an 86 year old male with PMH dementia, BPH, who lives at [facility] and fell from bed. He does not remember what happened. He denies pain. He denies trouble breathing. He has been in his normal state of health. He has no complaints or concerns. Subjective/Events-last exam He denies pain. He is not short of breath. He has no complaints. Objective Exam Vital Signs Vital Signs Date Time Temp Pulse Resp B/P (MAP) Pulse Ox O2 Delivery O2 Flow Rate FiO2 11/06/21 16:00 37.8 80 16 96/54 (68) 94 Room Air 11/05/21 12:00 4 Capillary Refill : Less Than 3 SecondsLess Than 3 Seconds General Appearance: No Apparent Distress, WD/WN Respiratory: Lungs Clear, No Respiratory Distress Cardiovascular: Regular Rate, Rhythm, No Murmur Gastrointestinal: Normal Bowel Sounds, Soft Extremity: Normal Inspection, No Pedal Edema Neurologic/Psychiatric: Alert, Disoriented Skin: Normal Color, Warm/Dry Results/Procedures Lab Laboratory Tests 11/06/21 06:18 Patient resulted labs reviewed. Imaging: Reviewed Imaging Report Assessment/Plan Assessment and Plan Assess & Plan/Chief Complaint Closed comminuted intertrochanteric fracture of left femur Orthopedic surgery consulted s/p intramedullary nailing 11/05 Pain regimen Bowel regimen Incentive spirometry PT/OT Social work consult BPH Dementia Advanced age Continue home meds DVT prophylaxis: Lovenox Diagnosis/Problems Diagnosis/Problems (1) Closed comminuted intertrochanteric fracture of right femur Status: Acute Qualifiers: Encounter type: initial encounter Qualified Codes: S72.141A - Displaced intertrochanteric fracture of right femur, initial encounter for closed fracture (2) BPH (benign prostatic hyperplasia) Status: Chronic (3) Dementia Status: Chronic (4) Advanced age Status: Chronic VITA ELLER MD Nov 06, 2021 18:29
[2021-11-06] MEDS ORDERED: KCL 10 MEQ TAB (MICRO K) PO ONE ×2 (18:30→22:30)
[2021-11-06] MEDS: ACETAMINOPHEN 325 MG TABLET PO PRN (19:49)
[2021-11-06] MEDS: FLUDROCORTISONE 0.1 MG (FLORINEF) TAB PO SCH (21:19)
[2021-11-06] MEDS: traZODone 100 MG (DESYREL) TAB PO SCH (21:19)
[2021-11-06] MEDS: DONEPEZIL 10 MG (ARICEPT) TAB PO SCH (21:19)
[2021-11-06] MEDS: MEMANTINE 10 MG (NAMENDA) TABLET PO SCH (21:19)
[2021-11-06] MEDS: TAMSULOSIN 0.4 MG (FLOMAX) CAP PO SCH (21:19)
[2021-11-07 03:59] VITALS: BP 93/57
[2021-11-07 06:46] LABS: BASOPHILS % (AUTO) 0 % (0-10); EOSINOPHILS % (AUTO) 0 % (0-10); HEMATOCRIT 28 % (40-54); HEMOGLOBIN 8.9 g/dL (13.3-17.7); LYMPHOCYTES # (AUTO) 0.9 10^3/uL (1.0-4.0); LYMPHOCYTES % (AUTO) 6 % (12-44); MEAN CORPUSCULAR HEMOGLOBIN 30 pg (25-34); MEAN CORPUSCULAR HGB CONC 32 g/dL (32-36); MEAN CORPUSCULAR VOLUME 93 fL (80-99); MEAN PLATELET VOLUME 10.2 fL (9.0-12.2); MONOCYTES # (AUTO) 1.3 10^3/uL (0.0-1.0); MONOCYTES % (AUTO) 9 % (0-12); NEUTROPHILS % (AUTO) 83 % (42-75); PLATELET COUNT 217 10^3/uL (130-400); WHITE BLOOD COUNT 13.3 10^3/uL (4.3-11.0)
[2021-11-07 07:13] LABS: CALCIUM 8.2 MG/DL (8.5-10.1); CREATININE SERUM 0.81 MG/DL (0.60-1.30); MAGNESIUM 1.9 MG/DL (1.6-2.4); POTASSIUM 3.4 MMOL/L (3.6-5.0)
[2021-11-07 07:41] VITALS: BP 105/60
[2021-11-07] MEDS: MAGNESIUM 1 GM/100 ML IVPB 100 ML IV SCH (08:14)
[2021-11-07] MEDS: KCL 20 MEQ TAB (K-DUR) PO SCH (08:14)
[2021-11-07] MEDS: POTASSIUM CL 10MEQ/50ML IVPB 50 ML IV SCH (08:14)
[2021-11-07] MEDS ORDERED: D5 1/2 NS W/KCL 20 MEQ/L 1,000 ML IV SCH (08:15)
[2021-11-07] MEDS ORDERED: KCL 20 MEQ TAB (K-DUR) PO NR (08:15)
[2021-11-07] MEDS: SENNA W/DOCUSATE (SENOKOT S) TABLET PO SCH ×2 (08:50→20:38)
[2021-11-07] MEDS: DOCUSATE SODIUM 100 MG (COLACE) CAP PO SCH ×2 (08:50→20:38)
[2021-11-07] MEDS: ENOXAPARIN 30 MG/0.3 ML (LOVENOX) SYR SC SCH ×2 (08:51→20:38)
[2021-11-07] MEDS: ACETAMINOPHEN 325 MG TABLET PO PRN (08:51)
--- NOTE | 2021-11-07 09:30 | Diagnostic Imaging Report ---
Indication: Postoperative fever. Comparison is made with a prior chest radiograph from November 052021. FINDINGS: Heart size is stable. Lung volumes are improved from previous exam. There is no new alveolar infiltrate or consolidation to suggest pneumonia. There is a stable granuloma within the left upper lobe. There is no effusion or pneumothorax. Pulmonary vascularity appears appropriate. IMPRESSION: 1. No findings of new alveolar consolidation or infiltrate. No evidence of pneumonia or effusion. 2. Stable enlargement of the cardiac silhouette. Dictated by: Dictated on workstation # [id number]
[2021-11-07 10:48] LABS: BILIRUBIN,URINE NEGATIVE (NEGATIVE); CLARITY,URINE CLOUDY; COLOR,URINE YELLOW; GLUCOSE, URINE (UA) NEGATIVE (NEGATIVE); KETONES,URINE NEGATIVE (NEGATIVE); LEUKOCYTE ESTERASE ,URINE 3+ (NEGATIVE); NITRITE,URINE POSITIVE (NEGATIVE); PROTEIN,URINE 1+ (NEGATIVE)
[2021-11-07 10:58] LABS: BACTERIA,URINE LARGE /HPF; RBC,URINE >100 /HPF; WBC,URINE TNTC /HPF
--- NOTE | 2021-11-07 11:44 | Physical Therapy Daily Note ---
PT Daily Note-Current Subjective Patient lying supine in bed upon PT arrival, agreeable to treatment. Rates pain at 0/10 currently. Upon moving his LEs he states, "I'd be better off , I'm at the point where I can't do anything." Nurse in the room at that time assisting with clean up for incontinence. Mental Status Patient Orientation: Person Transfers SCALE: Activities may be completed with or without assistive devices. 8-Gluqvxumlm-zjqtvep completes the activity by him/herself with no assistance from a helper. 5-Set-up or Clean-up Assistance-helper sets up or cleans up; patient completes activity. [place] assists only prior to or following the activity. 4-Supervision or Touching Assistance-helper provides verbal cues and/or touching/steadying and/or contact guard assistance as patient completes activity. Assistance may be provided throughout the activity or intermittently. 3-Partial/Moderate Assistance-helper does LESS THAN HALF the effort. [place] lifts, holds or supports trunk or limbs, but provides less than half the effort. 2-Substantial/Maximal Assistance-helper does MORE THAN HALF the effort. [place] lifts or holds trunk or limbs and provides more than half the effort. 4-Xefvegoxs-izvjnj does ALL the effort. Patient does none of the effort to complete the activity. Or, the assistance of 2 or more helpers is required for the patient to complete the activity. If activity was not attempted, code reason: 7-Patient Refused. 9-Not Applicable-not attempted and the patient did not perform the activity before the current illness, exacerbation or injury. 10-Not Attempted due to Environmental Limitations-(lack of equipment, weather restraints, etc.). 88-Not Attempted due to Medical Conditions or Safety Concerns. Roll Left & Right (QC): 3 Sit to Lying (QC): 3 Lying to Sitting/Side of Bed(Q: 3 Sit to Stand (QC): 3 Chair/Joc-ul-Mxssn Xfer(QC): 3 Weight Bearing Right Lower Extremity: Right Weight Bearing/Tolerated Left Lower Extremity: Left Full Weight Bearing Gait Training Does the Patient Walk?: No and Walking Goal IS indicated Exercises Supine Ex: Ankle pumps, Quad Set, Knee to chest, Short Arc Quads Supine Reps: 10 Assessment Current Status: Fair Progress Patient tolerated treatment well. Demonstrates improved bed mobility and transfers. Patient performs all bed mobility and transfers with min/mod A. Patient performs LE therapeutic exercise as listed above. Patient in chair post treatment with all needs met, nursing notified, call light in hand, and chair alarm activated. PT Short Term Goals Short Term Goals Time Frame: Nov 12, 2021 Roll Left & Right: 4 Sit to lyin Lying to sitting on side of be: 4 Sit to stand: 4 Chair/kjr-am-famfu transfer: 4 Toilet transfer: 4 Walk 10 feet: 3 Walk 50 feet with two turns: 3 PT Chcf Goals Chcf Goals PT Chcf Goals Time Frame: Nov 19, 2021 Roll Left & Right (QC): 4 Sit to Lying (QC): 4 Lying-Sitting on Side/Bed(QC): 4 Sit to Stand (QC): 4 Chair/Xzb-yc-Wbcmk Xfer(QC): 4 Toilet Transfer (QC): 4 Does the Patient Walk: No and Walking Goal IS indicated Walk 10 feet (QC): 4 PT Plan Treatment/Plan Treatment Plan: Continue Plan of Care Treatment Plan: Bed Mobility, Education, Functional Activity Hermelinda, Functional Strength, Gait, Safety, Therapeutic Exercise, Transfers Treatment Duration: Dec 03, 2021 Frequency: 11 times per week Estimated Hrs Per Day: .25 hour per day Patient and/or Family Agrees t: Yes Safety Risks/Education Patient Education: Transfer Techniques, Safety Issues Teaching Recipient: Patient Teaching Methods: Demonstration, Discussion Response to Teaching: Reinforcement Needed Time/GCodes Time In: 1055 Time Out: 1120 Total Billed Treatment Time: 25 Total Billed Treatment Visit, FA, JOANN MCLAUGHLIN PT Nov 07, 2021 11:44
[2021-11-07 11:56] VITALS: BP 102/64
[2021-11-07 15:30] VITALS: BP 118/66
[2021-11-07] MEDS ORDERED: cefTRIAXone 1 GM PRE-MIX 50 ML IV SCH (16:00)
--- NOTE | 2021-11-07 16:16 | Progress Note - Hospitalist ---
Subjective HPI/CC On Admission Date Seen by Provider: Nov 07, 2021 Time Seen by Provider: 10:35 James Johnson is an 86 year old male with PMH dementia, BPH, who lives at [facility] and fell from bed. He does not remember what happened. He denies pain. He denies trouble breathing. He has been in his normal state of health. He has no complaints or concerns. Subjective/Events-last exam He is doing well. He has no complaints or concerns. Objective Exam Vital Signs Vital Signs Date Time Temp Pulse Resp B/P (MAP) Pulse Ox O2 Delivery O2 Flow Rate FiO2 11/07/21 11:56 37.0 77 20 102/64 (77) 96 Room Air 11/05/21 12:00 4 Capillary Refill : Less Than 3 SecondsLess Than 3 Seconds General Appearance: No Apparent Distress, WD/WN Respiratory: Lungs Clear, No Respiratory Distress Cardiovascular: Regular Rate, Rhythm, No Murmur Gastrointestinal: Normal Bowel Sounds, Soft, Tenderness Extremity: Normal Inspection, No Pedal Edema Neurologic/Psychiatric: Alert, Normal Mood/Affect Results/Procedures Lab Laboratory Tests 11/07/21 05:56 Patient resulted labs reviewed. Imaging: Reviewed Imaging Report Assessment/Plan Assessment and Plan Assess & Plan/Chief Complaint Closed comminuted intertrochanteric fracture of left femur Orthopedic surgery consulted s/p intramedullary nailing 11/05 Pain regimen Bowel regimen Incentive spirometry PT/OT Social work consult Urinary tract infection UA consistent with UTI Begin Rocephin BPH Dementia Advanced age Continue home meds DVT prophylaxis: Lovenox Diagnosis/Problems Diagnosis/Problems (1) Closed comminuted intertrochanteric fracture of right femur Status: Acute Qualifiers: Encounter type: initial encounter Qualified Codes: S72.141A - Displaced intertrochanteric fracture of right femur, initial encounter for closed fracture (2) BPH (benign prostatic hyperplasia) Status: Chronic (3) Dementia Status: Chronic (4) Advanced age Status: Chronic (5) Urinary tract infection Status: Acute Qualifiers: Urinary tract infection type: acute cystitis Hematuria presence: with hematuria Qualified Codes: N30.01 - Acute cystitis with hematuria VITA ELLER MD Nov 07, 2021 16:16
[2021-11-07 19:00] VITALS: BP 136/68
[2021-11-07] MEDS: MEMANTINE 10 MG (NAMENDA) TABLET PO SCH (20:38)
[2021-11-07] MEDS: FLUDROCORTISONE 0.1 MG (FLORINEF) TAB PO SCH (20:38)
[2021-11-07] MEDS: TAMSULOSIN 0.4 MG (FLOMAX) CAP PO SCH (20:38)
[2021-11-07] MEDS: DONEPEZIL 10 MG (ARICEPT) TAB PO SCH (20:38)
[2021-11-07] MEDS: traZODone 100 MG (DESYREL) TAB PO SCH (20:38)
[2021-11-07 23:10] VITALS: BP 123/66
[2021-11-08] MEDS: ACETAMINOPHEN 325 MG TABLET PO PRN (04:21)
[2021-11-08 04:54] VITALS: BP 102/56
[2021-11-08 05:56] LABS: BASOPHILS % (AUTO) 0 % (0-10); EOSINOPHILS # (AUTO) 0.1 10^3/uL (0.0-0.3); EOSINOPHILS % (AUTO) 0 % (0-10); HEMATOCRIT 25 % (40-54); HEMOGLOBIN 8.1 g/dL (13.3-17.7); LYMPHOCYTES # (AUTO) 0.8 10^3/uL (1.0-4.0); LYMPHOCYTES % (AUTO) 7 % (12-44); MEAN CORPUSCULAR HEMOGLOBIN 30 pg (25-34); MEAN CORPUSCULAR HGB CONC 32 g/dL (32-36); MEAN CORPUSCULAR VOLUME 92 fL (80-99); MEAN PLATELET VOLUME 9.9 fL (9.0-12.2); MONOCYTES # (AUTO) 0.9 10^3/uL (0.0-1.0); MONOCYTES % (AUTO) 8 % (0-12); NEUTROPHILS # (AUTO) 9.5 10^3/uL (1.8-7.8); NEUTROPHILS % (AUTO) 84 % (42-75); PLATELET COUNT 207 10^3/uL (130-400); WHITE BLOOD COUNT 11.3 10^3/uL (4.3-11.0)
[2021-11-08 06:20] LABS: CALCIUM 8.1 MG/DL (8.5-10.1); CREATININE SERUM 0.84 MG/DL (0.60-1.30); MAGNESIUM 1.9 MG/DL (1.6-2.4); POTASSIUM 3.9 MMOL/L (3.6-5.0)
[2021-11-08] MEDS: POTASSIUM CL 10MEQ/50ML IVPB 50 ML IV SCH (06:53)
[2021-11-08] MEDS: KCL 20 MEQ TAB (K-DUR) PO SCH (06:53)
[2021-11-08] MEDS: MAGNESIUM 1 GM/100 ML IVPB 100 ML IV SCH (06:53)
[2021-11-08 08:00] VITALS: BP 94/52
--- NOTE | 2021-11-08 08:44 | Progress Note - Ortho ---
Progress Note Subjective Date of Exam 11/08/21 Chief Complaint POD #3 IM Nailing of R IT Femur Fx HPI/Events since last exam pain controlled, has been doing transfers with therapy Review of Systems - Allergies: Coded Allergies: amoxicillin (Verified Allergy, Unknown, 09/16/21) clavulanic acid (Verified Allergy, Unknown, 09/16/21) famotidine (Verified Allergy, Unknown, 09/16/21) ketamine (Verified Allergy, Unknown, 09/16/21) lisinopril (Verified Allergy, Unknown, 09/16/21) rofecoxib (Verified Allergy, Unknown, 09/16/21) Home Meds Reported Medications Magnesium Hydroxide (Milk of Magnesia) 400 Mg/5 Ml Oral.susp, 30 ML PO BID PRN for CONSTIPATION-7TH LINE, ML 11/05/21 Tamsulosin HCl (Flomax) 0.4 Mg Cap, 0.8 MG PO HS, CAP TAKES 2 (0.4MG) CAPS 11/05/21 Trazodone HCl (Trazodone HCl) 100 Mg Tablet, 100 MG PO HS, TAB 11/05/21 Memantine HCl (Namenda) 10 Mg Tablet, 20 MG PO HS, TAB TAKES 2 (10MG) TABS 11/05/21 Donepezil HCl (Aricept) 10 Mg Tablet, 10 MG PO HS, TAB 11/05/21 Acetaminophen (Acetaminophen ER) 650 Mg Tablet.er, 650 MG PO Q6H PRN for PAIN- MILD (1-4), TAB 11/05/21 Aspirin (Low Dose Aspirin EC) 81 Mg Tablet.dr, 81 MG PO DAILY, TAB 11/05/21 Fludrocortisone Acetate (Fludrocortisone Acetate) 0.1 Mg Tab, 0.1 MG PO HS, TAB 11/05/21 Docusate Sodium (Docusate Sodium) 100 Mg Tablet, 100 MG PO DAILY, TAB 11/05/21 Ferrous Sulfate (Iron) 325 Mg Tablet, 325 MG PO DAILY, TAB 11/05/21 Discontinued Scripts Cephalexin (Cephalexin) 500 Mg Capsule, 500 MG PO BID for 5 Days, #10 CAP 0 Refills Prov:VICENTE JONES MD 09/16/21 Objective Exam R Hip: Dressing C/D/I, +DF, no s/s of DVT Vital Signs Vital Signs Date Time Temp Pulse Resp B/P (MAP) Pulse Ox O2 Delivery O2 Flow Rate FiO2 11/08/21 05:21 37.3 11/08/21 04:54 37.9 89 16 102/56 (71) 93 Room Air 11/08/21 04:21 37.9 11/07/21 23:10 37.6 84 20 123/66 (85) 91 Room Air 11/07/21 20:45 Room Air 11/07/21 19:00 36.4 99 20 136/68 (90) 93 Room Air 11/07/21 15:30 36.2 82 20 118/66 (83) 96 Room Air 11/07/21 11:56 37.0 77 20 102/64 (77) 96 Room Air 11/07/21 09:21 36.8 11/07/21 08:51 38.0 I & O 11/08/21 07:00 Intake Total 2620 ml Output Total 150 ml Balance 2470 ml Lab Results Laboratory Tests 11/07/21 10:35: Urine Color YELLOW, Urine Clarity CLOUDY, Urine pH 7.0, Urine Specific [place] 1.015L, Urine Protein 1+H, Urine Glucose (UA) NEGATIVE, Urine Ketones NEGATIVE, Urine Nitrite POSITIVEH, Urine Bilirubin NEGATIVE, Urine Urobilinogen 0.2, Urine Leukocyte Esterase 3+H, Urine RBC (Auto) 3+H, Urine RBC >100H, Urine WBC TNTCH, Urine Crystals NONE, Urine Bacteria LARGEH, Urine Casts NONE, Urine Mucus N EGATIVE, Urine Culture Indicated YES 11/08/21 05:45: White Blood Count 11.3H, Red Blood Count 2.73L, Hemoglobin 8.1L, Hematocrit 25L, Mean Corpuscular Volume 92, Mean Corpuscular Hemoglobin 30, Mean Corpuscular Hemoglobin Concent 32, Red Cell Distribution Width 14.1, Platelet Count 207, Mean Platelet Volume 9.9, Immature Granulocyte % (Auto) 1, Neutrophils (%) (Auto) 84H, Lymphocytes (%) (Auto) 7L, Monocytes (%) (Auto) 8, Eosinophils (%) (Auto) 0, Basophils (%) (Auto) 0, Neutrophils # (Auto) 9.5H, Lymphocytes # (Auto) 0.8L, Monocytes # (Auto) 0.9, Eosinophils # (Auto) 0.1, Basophils # (Auto) 0.0, Immature Granulocyte # (Auto) 0.1, Sodium Level 132L, Potassium Level 3.9, Chloride Level 100, Carbon Dioxide Level 22, Anion Gap 10, Blood Urea Nitrogen 24H, Creatinine 0.84, Estimat Glomerular Filtration Rate 84, BUN/Creatinine Ratio 29, Glucose Level 101, Calcium Level 8.1L, Magnesium Level 1.9 Microbiology 11/07/21 Urine Culture - Preliminary, Resulted Staphylococcus aureus Assessment and Plan Assessment Right Intertrochanteric Femur Fracture s/p Intramedullary Nailing Problem List Right Intertrochanteric Femur Fracture s/p Intramedullary Nailing Plan Continue therapy DVT prophylaxis From orthopedic standpoint okay to transfer back to penitentiary at any point Final Diagonsis Right Intertrochanteric Femur Fracture s/p Intramedullary Nailing Level of the visit: Level 3 (postop global) ANIL MUJICA MD Nov 08, 2021 08:44
[2021-11-08] MEDS: SENNA W/DOCUSATE (SENOKOT S) TABLET PO SCH (09:27)
[2021-11-08] MEDS: DOCUSATE SODIUM 100 MG (COLACE) CAP PO SCH (09:27)
[2021-11-08] MEDS: ENOXAPARIN 30 MG/0.3 ML (LOVENOX) SYR SC SCH (09:27)
--- NOTE | 2021-11-08 09:34 | Physical Therapy Daily Note ---
PT Daily Note-Current Subjective Patient presented in bed and agrees to move to the bed to finish breakfast. Patient has a poor memory and is unable to remember why he is at the hospital. Patient had soiled the bed and required assistance getting cleaned up. Mental Status Patient Orientation: Person, Confused Transfers SCALE: Activities may be completed with or without assistive devices. 2-Yauodwbmrq-eerlnml completes the activity by him/herself with no assistance from a helper. 5-Set-up or Clean-up Assistance-helper sets up or cleans up; patient completes activity. [place] assists only prior to or following the activity. 4-Supervision or Touching Assistance-helper provides verbal cues and/or touching/steadying and/or contact guard assistance as patient completes activity. Assistance may be provided throughout the activity or intermittently. 3-Partial/Moderate Assistance-helper does LESS THAN HALF the effort. [place] lifts, holds or supports trunk or limbs, but provides less than half the effort. 2-Substantial/Maximal Assistance-helper does MORE THAN HALF the effort. [place] lifts or holds trunk or limbs and provides more than half the effort. 4-Nbowrwbfa-iwaszj does ALL the effort. Patient does none of the effort to complete the activity. Or, the assistance of 2 or more helpers is required for the patient to complete the activity. If activity was not attempted, code reason: 7-Patient Refused. 9-Not Applicable-not attempted and the patient did not perform the activity before the current illness, exacerbation or injury. 10-Not Attempted due to Environmental Limitations-(lack of equipment, weather restraints, etc.). 88-Not Attempted due to Medical Conditions or Safety Concerns. Lying to Sitting/Side of Bed(Q: 3 Sit to Stand (QC): 3 Chair/Jjg-rh-Wzzea Xfer(QC): 2 Patient was min assist to move to the side of the bed and mod assist to stand at the walker but required max assist to perform stand pivot transfer. Patient became anxious and was impulsive with stand to sit transfer to recliner requiring PT assist for safety. Weight Bearing Right Lower Extremity: Right Weight Bearing/Tolerated Left Lower Extremity: Left Full Weight Bearing Gait Training Does the Patient Walk?: Yes Distance: 3 steps Gait Assistive Device: FWW Patient was able to ambulate 3 steps during stand pivot transfer with max assist. Patient required frequent cues to stand up and continue to take steps while performing transfers. Exercises Seated Therapy Exercises: Long arc quads Seated Reps: 10 Assessment Patient completed seated exercises and transfers to the chair. Patient was able to EOB with min assist and perform sit to stand transfer with mod assist but required max assist to pivot to the chair. Patient did not ambulate very much prior to current hospital stay. Patient is very confused but does report discomfort in his R hip while standing. Patient required assistance to perform LAQ on R LE due to weakness. PT Short Term Goals Short Term Goals Time Frame: Nov 12, 2021 Roll Left & Right: 4 Sit to lyin Lying to sitting on side of be: 4 Sit to stand: 4 Chair/hxt-ly-jgimb transfer: 4 Toilet transfer: 4 Walk 10 feet: 3 Walk 50 feet with two turns: 3 PT Boat Driver Goals Longterm Goals PT Boat Driver Goals Time Frame: Nov 19, 2021 Roll Left & Right (QC): 4 Sit to Lying (QC): 4 Lying-Sitting on Side/Bed(QC): 4 Sit to Stand (QC): 4 Chair/Apj-ve-Ozyic Xfer(QC): 4 Toilet Transfer (QC): 4 Does the Patient Walk: No and Walking Goal IS indicated Walk 10 feet (QC): 4 PT Plan Problem List Problem List: Activity Tolerance, Functional Strength, Safety, Balance, Gait, Transfer, Bed Mobility, ROM Treatment/Plan Treatment Plan: Continue Plan of Care Treatment Plan: Bed Mobility, Education, Functional Activity Herm[place]inda, Functional Strength, Gait, Safety, Therapeutic Exercise, Transfers Treatment Duration: Dec 03, 2021 Frequency: 11 times per week Estimated Hrs Per Day: .25 hour per day Patient and/or Family Agrees t: Yes Time/GCodes Time In: 820 Time Out: 839 Total Billed Treatment Time: 19 Total Billed Treatment 1 Visit FA 19 min JESSICA CURTIS PT Nov 08, 2021 09:34
--- NOTE | 2021-11-08 11:34 | Occupational Therapy Eval ---
OT Evaluation-General/PLF Medical Diagnosis Admission Date Nov 05, 2021 at 07:56 Medical Diagnosis: Right femur fracture Onset Date: Nov 05, 2021 Therapy Diagnosis Therapy Diagnosis: decreased ADL sttaus Precautions Precautions/Isolations: Fall Prevention, Standard Precautions Referral Physician: Dr. Grider Referral Reason: Evaluation/Treatment Medical History Additional Medical History dementia Current History ED from [facility]. s/p R IM nail 11/05/21 Social History Home: [facility] ADL-Prior Level of Function SCALE: Activities may be completed with or without assistive devices. 1-Upxqqbpxbn-aaqmuwg completes the activity by him/herself with no assistance from a helper. 5-Set-up or Clean-up Assistance-helper sets up or cleans up; patient completes activity. [place] assists only prior to or following the activity. 4-Supervision or Touching Assistance-helper provides verbal cues and/or touching/steadying and/or contact guard assistance as patient completes activity. Assistance may be provided throughout the activity or intermittently. 3-Partial/Moderate Assistance-helper does LESS THAN HALF the effort. [place] lifts, holds or supports trunk or limbs, but provides less than half the effort. 2-Substantial/Maximal Assistance-helper does MORE THAN HALF the effort. [place] lifts or holds trunk or limbs and provides more than half the effort. 8-Hltbybbfu-izqgcu does ALL the effort. Patient does none of the effort to com plete the activity. Or, the assistance of 2 or more helpers is required for the patient to complete the activity. If activity was not attempted, code reason: 7-Patient Refused. 9-Not Applicable-not attempted and the patient did not perform the activity before the current illness, exacerbation or injury. 10-Not Attempted due to Environmental Limitations-(lack of equipment, weather restraints, etc.). 88-Not Attempted due to Medical Conditions or Safety Concerns. ADL PLOF Comments Pt unable to recall how much assistance he required at PLOF. Based on clinical judgment, pt required assistance with all ADLs at PLOF. Self Care: Needed Some Help Functional Cognition: Needed Some Help OT Current Status Subjective Pt up in recliner, agreeable to OT tx. Pt reports pain along his back and but tocks, but does not verbalize pain rating. Pt afraid if he were to get up that he would fall and break his hip or arm, pt unable to recall that he had fractured his hip and had surgery. Mental Status/Objective Patient Orientation: Person, Confused Current Upper Extremity ROM WFL, BUE shoulder flexion to approx 150 degrees Upper Extremity Coordination WFL Upper Extremity Strength grossly 4/5 ADL-Treatment Oral Hygiene (QC): 7 Shower/Bathe Self (QC): 1 (Per clinical judgment.) Lower Body Dressing (QC): 1 (Per clincial judgment.) On/Off Footwear (QC): 1 (Per clincial judgment) Toileting Hygiene (QC): 1 (Per clinical judgment.) Other Treatments Pt up in recliner, agreeable to OT Tx. Pt unable to provide much information about PLOF. Pt declined ADLs at this time, but agreeable to UE exercises to increase BUE strength and activity tolerance with some encouragement. Pt completed x5 reps each of the following BUE exercises: shoulder flexion, elbow flexion/extension, wrist flexion/extension and front punch. Pt encouraged to complete exercises throughout the day. Post tx, pt in recliner, call light in reach and all needs met. Education OT Patient Education: Correct positioning, Energy conservation, Modified ADL techniques, Progress toward Goal/Update tx plan, Purpose of tx/functional activities, Rehab process Teaching Recipient: Patient Teaching Methods: Discussion Response to Teaching: Verbalize Understanding OT Halfway Goals Halfway Goals Time Frame: Nov 19, 2021 Eating (QC): 5 Oral Hygiene (QC): 5 Toileting Hygiene (QC): 3 Shower/Bathe Self (QC): 2 Upper Body Dressing (QC): 3 Lower Body Dressing (QC): 2 On/Off Footwear (QC): 2 Additional Goals: 1-Demonstrate ADL Tasks, 2-Verbalize Understanding, 3-Impro veStrength/[place] 1=Demonstrate adherence to instructed precautions during ADL tasks. 2=Patient will verbalize/demonstrate understanding of assistive devices/modifications for ADL. 3=Patient will improve strength/tolerance for activity to enable patient to perform ADL's. OT Education/Plan Problem List/Assessment Assessment: Decreased Activ Tolerance, Decreased UE Strength, Impaired Cognition, Impaired Coordination, Impaired Funct Balance, Impaired I ADL's, Impaired Self-Care Skills Discharge Recommendations Plan/Recommendations: Continue POC Treatment Plan/Plan of Care Patient would benefit from OT for education, treatment and training to promote independence in ADL's, mobility, safety and/or upper extremity function for ADL's. Plan of Care: ADL Retraining, Functional Mobility, UE Funct Exercise/Act Treatment Duration: Nov 19, 2021 Frequency: 3 times per week (3-5 times per week) Rehab Potential: Guarded Time/GCodes Start Time: 10:35 Stop Time: 10:44 Total Time Billed (hr/min): 9 Billed Treatment Time 1, SHEILA JAMISON OT Nov 08, 2021 11:34
[2021-11-08 11:51] VITALS: BP 112/62
--- NOTE | 2021-11-08 12:19 | Discharge Summary ---
Discharge Summary Reconcile Patient Problems Problems Reviewed?: Yes Hospital Course Hospital Course Date of Admission: Nov 05, 2021 at 07:56 Admission Diagnosis : Hip fracture Family Physician/Provider: Chano Apple MD Date of Discharge: 11/08/21 Discharge Diagnosis: Hip fracture Hospital Course: James Johnson is an 86 year old male with dementia who was admitted with hip fracture. Orthopedic surgery performed intramedullary nailing on 11/05. He did well post-operatively. He had some anemia but did not require any transfusions. He did have a fever and was found to have a urinary tract infection due to Staph aureus. He was given a prescription for Bactrim. He was discharged back to [facility] in stable condition to continue skilled therapies. Labs and Pending Lab Test: Laboratory Tests 11/08/21 05:45: White Blood Count 11.3H, Red Blood Count 2.73L, Hemoglobin 8.1L, Hematocrit 25L, Mean Corpuscular Volume 92, Mean Corpuscular Hemoglobin 30, Mean Corpuscular Hemoglobin Concent 32, Red Cell Distribution Width 14.1, Platelet Count 207, Mean Platelet Volume 9.9, Immature Granulocyte % (Auto) 1, Neutrophils (%) (Auto) 84H, Lymphocytes (%) (Auto) 7L, Monocytes (%) (Auto) 8, Eosinophils (%) (Auto) 0, Basophils (%) (Auto) 0, Neutrophils # (Auto) 9.5H, Lymphocytes # (Auto) 0.8L, Monocytes # (Auto) 0.9, Eosinophils # (Auto) 0.1, Basophils # (Auto) 0.0, Immature Granulocyte # (Auto) 0.1, Sodium Level 132L, Potassium Level 3.9, Chloride Level 100, Carbon Dioxide Level 22, Anion Gap 10, Blood Urea Nitrogen 24H, Creatinine 0.84, Estimat Glomerular Filtration Rate 84, BUN/Creatinine Ratio 29, Glucose Level 101, Calcium Level 8.1L, Magnesium Level 1.9 Microbiology 11/07/21 Urine Culture - Preliminary, Resulted Staphylococcus aureus Home Meds Active Reported Milk of Magnesia (Magnesium Hydroxide) 400 Mg/5 Ml Oral.susp 30 Ml PO BID PRN Flomax (Tamsulosin HCl) 0.4 Mg Cap 0.8 Mg PO HS TAKES 2 (0.4MG) CAPS Trazodone HCl 100 Mg Tablet 100 Mg PO HS Namenda (Memantine HCl) 10 Mg Tablet 20 Mg PO HS TAKES 2 (10MG) TABS Aricept (Donepezil HCl) 10 Mg Tablet 10 Mg PO HS Acetaminophen ER (Acetaminophen) 650 Mg Tablet.er 650 Mg PO Q6H PRN Low Dose Aspirin EC (Aspirin) 81 Mg Tablet.dr 81 Mg PO DAILY Fludrocortisone Acetate 0.1 Mg Tab 0.1 Mg PO HS Docusate Sodium 100 Mg Tablet 100 Mg PO DAILY Iron (Ferrous Sulfate) 325 Mg Tablet 325 Mg PO DAILY Instructions to Patient/Family Assessment/Instructions Take medications as prescribed. Follow up with your primary care doctor. Return with worsening pain, shortness of breath, or if you feel like you are getting worse. Follow Up Appt.: next jail rounds Skilled NF Admit to: [facility] Certification (SNF) I certify that SNF services are required to be given on an inpatient basis because of the above named patient's need for jail care on a continuing basis for the conditions(s) for which he/she was receiving inpatient hospital services prior to his/her transfer to the SNF. Group Home Facility Order: Nursing Services, Clinical Laboratory Aide-Evaluate & Treat, Physical Therapy-Evaluate & Treat Oxygen Delivery Method: Room Air Discharge Diet: No Restrictions Daily Activity as Tolerated: Yes Resuscitation Status: Full Code Vita Eller Nov 08, 2021 12:12 Discharge Physical Exam General: Alert, Cooperative, No Acute Distress HEENT: Atraumatic, EOMI, Mucous Memb Moist/[place] Lungs: Clear to Auscultation, Normal Air Movement Heart: Regular Rate, Normal S1, Normal S2, No Murmurs Abdomen: Normal Bowel Sounds, Soft, No Tenderness Extremities: No Edema, No Tenderness/Swelling Skin: No Rashes Neuro: Normal Speech, Other Psych/Mental Status: Mood NL VITA ELLER MD Nov 08, 2021 12:18
[2021-11-08] MEDS ORDERED: SULF1TAB38 PO (12:20)
== END 2021-11-08 15:50 | DRG 481 ==
LOC: EDUNIT# 05:24 → ER 05:26 → 4TH 07:56
PROVIDERS: ADMIT Internal Medicine; ATTEND Internal Medicine
PROC: 0QS636Z Reposition Right Upper Femur with Intramedullary Internal Fixation Device, Percutaneous Approach (ICD-10-PCS; principal; 2021-11-05 10:27)
DX: S72.141A Displaced intertrochanteric fracture of right femur, initial encounter for closed fracture (principal); N39.0 Urinary tract infection, site not specified; F03.90 Unspecified dementia, unspecified severity, without behavioral disturbance, psychotic disturbance, mood disturbance, and anxiety; N40.0 Benign prostatic hyperplasia without lower urinary tract symptoms; H91.90 Unspecified hearing loss, unspecified ear; Z88.1 Allergy status to other antibiotic agents; Z88.8 Allergy status to other drugs, medicaments and biological substances; B95.61 Methicillin susceptible Staphylococcus aureus infection as the cause of diseases classified elsewhere; Z97.4 Presence of external hearing-aid; W06.XXXA Fall from bed, initial encounter
CPT/HCPCS: 36415; 71045; 72170; 73552; 76000; 80048; 80053; 81000; 83735; 84145; 85007; 85025; 85027; 87077; 87088; 93005; 94664

== ENCOUNTER → 2021-12-07 | Outpatient (CLI) | payer MEDICARE ==
[~2021-12-07] MED LIST changes: +ACET-2422 PO; +ASPI81TA16 PO; +DOCU100T2 PO; +DONE10TA12 PO; +FERR-84 PO; +FLDR.1T PO; +MAGN400O7 PO; +MEMA10TA2 PO; +SULF1TAB38 PO; +TMSL.4C PO; +TRAZ-227 PO
--- NOTE | 2021-12-07 12:02 | Diagnostic Imaging Report ---
INDICATION: Postoperative followup COMPARISON: 11/05/2021 TECHNIQUE: 2 radiographs of the right hip are obtained dated 12/07/2021. FINDINGS: Gamma nail is again identified transfixing previously noted proximal right hip fracture. Alignment appears stable from intraoperative imaging. No evidence of hardware complication. Mild periosteal reaction and callus formation is identified. No new fracture or dislocation. The right sacroiliac joint is intact. No suspicious radiopaque foreign body. IMPRESSION: Healing, incompletely healed, internally fixated proximal right femoral fracture remaining in stable alignment without evidence of hardware complication or new acute osseous abnormality. Dictated by: Dictated on workstation # [id number]
== END ==
LOC: ORTHO 09:48
PROVIDERS: ATTEND Orthopaedic Surgery
DX: S72.091D Other fracture of head and neck of right femur, subsequent encounter for closed fracture with routine healing (principal); X58.XXXD Exposure to other specified factors, subsequent encounter
CPT/HCPCS: 73502

== ENCOUNTER → 2022-01-11 | Outpatient (CLI) | payer MEDICARE ==
--- NOTE | 2022-01-11 11:22 | Diagnostic Imaging Report ---
INDICATION: Right hip pain, ORIF. COMPARISON: 12/07/2021. FINDINGS: Two views of the right hip demonstrate stable dynamic pin and nail. The fracture site appears to be healing and well aligned. No dislocation. IMPRESSION: Stable ORIF of the right hip. Dictated by: Dictated on workstation # [id number]
== END ==
LOC: ORTHO 09:33
PROVIDERS: ATTEND Orthopaedic Surgery
DX: M25.551 Pain in right hip (principal); Z98.890 Other specified postprocedural states
CPT/HCPCS: 73502

== ENCOUNTER → 2022-03-03 | Outpatient (CLI) | payer MEDICARE ==
--- NOTE | 2022-03-03 15:49 | Diagnostic Imaging Report ---
INDICATION: Postop hip. COMPARISON: 01/11/2022. FINDINGS: Two radiographic views of the right hip were obtained and again show postsurgical changes of previous proximal right femoral ORIF. Short intramedullary karine is seen within the proximal right femoral shaft. This intersects a screw, which traverses the femoral head and neck. Proximal femoral fracture fragments remain in appropriate, stable position. Fracture line is less evident. No new acute osseous abnormality is seen. No unexpected radiopaque foreign bodies are identified. IMPRESSION: 1. Expected postsurgical changes of previous right femoral ORIF. Dictated by: Dictated on workstation # [id number]
== END ==
LOC: ORTHO 14:23
PROVIDERS: ATTEND Orthopaedic Surgery
DX: Z47.89 Encounter for other orthopedic aftercare (principal)
CPT/HCPCS: 73502; G0463; 99213

== ENCOUNTER 2022-04-22 08:14 | Emergency (ER) | payer MEDICARE ==
[~2022-04-22] VITALS: Ht 176 cm; Wt 75.6 kg
[2022-04-22] MEDS ORDERED: NS IV 500 ML 500 ML IV ONE (08:45)
--- NOTE | 2022-04-22 08:45 | ED Fall/Injury ---
General Chief Complaint: Trauma-Non Activation Stated Complaint: FALL Source: patient Exam Limitations: no limitations History of Present Illness Date Seen by Provider: Apr 22, 2022 Time Seen by Provider: 08:20 Initial Comments Patient to the ER by private conveyance from the intermediate with chief complaint of an unwitnessed fall this morning. He is on aspirin but no blood thinners. He has a laceration on his chin as well as a skin tear on his left elbow. He is complaining of fullness and pain and needing to urinate frequently but not able to produce much urine. He has had to be catheterized in the past for urinary retention. He is on Flomax. Allergies and Home Medications Allergies Coded Allergies: amoxicillin (Verified Allergy, Unknown, 09/16/21) clavulanic acid (Verified Allergy, Unknown, 09/16/21) famotidine (Verified Allergy, Unknown, 09/16/21) ketamine (Verified Allergy, Unknown, 09/16/21) lisinopril (Verified Allergy, Unknown, 09/16/21) rofecoxib (Verified Allergy, Unknown, 09/16/21) Patient Home Medication List Home Medication List Reviewed: Yes Acetaminophen (Acetaminophen ER) 650 Mg Tablet.er, 650 MG PO Q6H PRN for PAIN- MILD (1-4), (Reported) Entered as Reported by: JAY PAULSON on 11/05/21 121 Aspirin (Low Dose Aspirin EC) 81 Mg Tablet.dr, 81 MG PO DAILY, (Reported) Entered as Reported by: JAY PAULSON on 11/05/21 121 Cefdinir (Cefdinir) 300 Mg Capsule, 300 MG PO BID Prescribed by: JOB FRANCIS on 04/22/22 1038 Docusate Sodium (Docusate Sodium) 100 Mg Tablet, 100 MG PO DAILY, (Reported) Entered as Reported by: JAY PAULSON on 11/05/21 121 Donepezil HCl (Aricept) 10 Mg Tablet, 10 MG PO HS, (Reported) Entered as Reported by: JAY PAULSON on 11/05/21 121 Ferrous Sulfate (Iron) 325 Mg Tablet, 325 MG PO DAILY, (Reported) Entered as Reported by: JAY PAULSON on 11/05/21 121 Fludrocortisone Acetate (Fludrocortisone Acetate) 0.1 Mg Tab, 0.1 MG PO HS, (Rep orted) Entered as Reported by: JAY PAULSON on 11/05/21 121 Magnesium Hydroxide (Milk of Magnesia) 400 Mg/5 Ml Oral.susp, 30 ML PO BID PRN for CONSTIPATION-7TH LINE, (Reported) Entered as Reported by: JAY PAULSON on 11/05/21 121 Memantine HCl (Namenda) 10 Mg Tablet, 20 MG PO HS, (Reported) Entered as Reported by: JAY PAULSON on 11/05/21 121 Sulfamethoxazole/Trimethoprim (Bactrim Ds Tablet) 1 Each Tablet, 1 EACH PO BID Prescribed by: VITA ELLER on 11/08/21 1220 Tamsulosin HCl (Flomax) 0.4 Mg Cap, 0.8 MG PO HS, (Reported) Entered as Reported by: JAY PAULSON on 11/05/21 121 Trazodone HCl (Trazodone HCl) 100 Mg Tablet, 100 MG PO HS, (Reported) Entered as Reported by: JAY PAULSON on 11/05/21 121 Review of Systems Review of Systems Constitutional: No chills, No diaphoresis Eyes: Denies Blindness, Denies Blurred Vision Ears, Nose, Mouth, Throat: denies ear pain Respiratory: No cough, No short of breath Cardiovascular: No Hx of Intervention, No palpitations Gastrointestinal: No abdominal pain, No constipation, No diarrhea Genitourinary: No discharge, No dysuria Musculoskeletal: No back pain, No joint pain All Other Systems Reviewed Negative Unless Noted: Yes Past Zmftmfu-Sgtmlh-Vsmbtp Hx Patient Social History Tobacco Use?: No Substance use?: No Past Medical History Surgeries: Yes Orthopedic Currently Using CPAP: No Currently Using BIPAP: No Cardiac: Yes (Hypotension) Neurological: Yes Dementia Genitourinary: Yes Prostate Problems Gastrointestinal: No Musculoskeletal: No Endocrine: No HEENT: Yes Hearing Impairment: Hard of Hearing Cancer: No Psychosocial: No Family Medical History No Pertinent Family Hx Physical Exam Vital Signs Vital Signs - First Documented 04/22/22 08:35 Temp 36.3 Pulse 57 Resp 16 B/P (MAP) 89/69 (76) Pulse Ox 98 O2 Delivery Room Air Capillary Refill : Height, Weight, BMI Height: '" Weight: lbs. oz. kg; 21.99 BMI Method: General Appearance: WD/WN, mild distress HEENT: PERRL/EOMI, TMs normal (Negative for hemotympanums or rm sign), pharynx normal, other (2.5 cm laceration on the submental) Neck: full range of motion, supple, normal inspection Cardiovascular: normal peripheral pulses, regular rate, rhythm Respiratory: lungs clear, normal breath sounds, no respiratory distress, no accessory muscle use Peripheral Pulses: 2+ Radial Pulses (R), 2+ Radial Pulses (L) Gastrointestinal: normal bowel sounds, non tender, soft Neurologic/Psychiatric: alert, normal mood/affect, oriented x 3 Skin: other (Skin tear 1 cm on the left elbow) [place] Coma Score Best Eye Response: (4) Open Spontaneously Best Verbal Response: (5) Oriented Best Motor Response: (6) Obeys Commands Joo Total: 15 Procedures/Interventions Wound Location: Face Other Wound Location Mentum Wound Length (cm): 2.5 Wound's Depth, Shape: linear, sub Q Wound Explored: clean Irrigated w/ Saline (ccs): 100 Betadine Prep?: Yes (Chlorhexidine) Anesthesia: 1% Lidocaine Volume Anesthetic (ccs): 1 Wound Debrided: minimal Staple Repair: Stapler 35W Number of Sutures: 3 Progress Clean wound thoroughly flushed it and reapproximate skin edges with 3 kiet. Progress/Results/Core Measures Results/Orders Lab Results Laboratory Tests Test 04/22/22 09:25 Range/Units White Blood Count 10.2 4.3-11.0 10^3/uL Red Blood Count 4.28 L 4.30-5.52 10^6/uL Hemoglobin 13.4 13.3-17.7 g/dL Hematocrit 41 40-54 % Mean Corpuscular Volume 96 80-99 fL Mean Corpuscular Hemoglobin 31 25-34 pg Mean Corpuscular Hemoglobin Concent 33 32-36 g/dL Red Cell Distribution Width 13.6 10.0-14.5 % Platelet Count 178 130-400 10^3/uL Mean Platelet Volume 10.2 9.0-12.2 fL Immature Granulocyte % (Auto) 1 % Neutrophils (%) (Auto) 80 H 42-75 % Lymphocytes (%) (Auto) 10 L 12-44 % Monocytes (%) (Auto) 8 0-12 % Eosinophils (%) (Auto) 1 0-10 % Basophils (%) (Auto) 1 0-10 % Neutrophils # (Auto) 8.2 H 1.8-7.8 10^3/uL Lymphocytes # (Auto) 1.0 1.0-4.0 10^3/uL Monocytes # (Auto) 0.8 0.0-1.0 10^3/uL Eosinophils # (Auto) 0.1 0.0-0.3 10^3/uL Basophils # (Auto) 0.1 0.0-0.1 10^3/uL Immature Granulocyte # (Auto) 0.1 0.0-0.1 10^3/uL Urine Color YELLOW Urine Clarity CLEAR Urine pH 6.0 5-9 Urine Specific [place] 1.010 L 1.016-1.022 Urine Protein NEGATIVE NEGATIVE Urine Glucose (UA) NEGATIVE NEGATIVE Urine Ketones NEGATIVE NEGATIVE Urine Nitrite POSITIVE H NEGATIVE Urine Bilirubin NEGATIVE NEGATIVE Urine Urobilinogen 0.2 < = 1.0 MG/DL Urine Leukocyte Esterase 2+ H NEGATIVE Urine RBC (Auto) TRACE-I H NEGATIVE Urine RBC RARE /HPF Urine WBC 10-25 H /HPF Urine Squamous Epithelial Cells RARE /HPF Urine Crystals NONE /LPF Urine Bacteria LARGE H /HPF Urine Casts NONE /LPF Urine Mucus NEGATIVE /LPF Urine Culture Indicated YES Sodium Level 141 135-145 MMOL/L Potassium Level 3.6 3.6-5.0 MMOL/L Chloride Level 106 98-107 MMOL/L Carbon Dioxide Level 23 21-32 MMOL/L Anion Gap 12 5-14 MMOL/L Blood Urea Nitrogen 18 7-18 MG/DL Creatinine 0.87 0.60-1.30 MG/DL Estimat Glomerular Filtration Rate 84 BUN/Creatinine Ratio 21 Glucose Level 98 70-105 MG/DL Calcium Level 9.1 8.5-10.1 MG/DL Corrected Calcium 9.4 8.5-10.1 MG/DL Total Bilirubin 1.2 H 0.1-1.0 MG/DL Aspartate Amino Transf (AST/SGOT) 20 5-34 U/L Alanine Aminotransferase (ALT/SGPT) 16 0-55 U/L Alkaline Phosphatase 120 40-136 U/L Total Protein 5.9 L 6.4-8.2 GM/DL Albumin 3.6 3.2-4.5 GM/DL My Orders Orders - JOB FRANCIS Ct Head/Face/Cervical Wo (04/22/22 08:31) Ribs, Left 2-3 Views (04/22/22 08:31) Elbow, Left, 3 Views (04/22/22 08:31) Ua Culture If Indicated (04/22/22 08:31) Incentive Spirometry Initial (04/22/22 08:41) Bladder Scan (04/22/22 08:41) Ed Iv/Invasive Line Start (04/22/22 08:45) Ns Iv 500 Ml (Sodium Chloride 0.9%) (04/22/22 08:45) Cbc With Automated Diff (04/22/22 08:45) Comprehensive Metabolic Panel (04/22/22 08:45) Straight Cath For Spec.-Adult (04/22/22 09:13) Orthostatic Vital Signs (Adult (04/22/22 09:31) Lidocaine 1% Inj 20 Ml (Xylocaine 1% Inj (04/22/22 09:45) Lidocaine 1% Inj 20 Ml (Xylocaine 1% Inj (04/22/22 09:40) Urine Culture (04/22/22 09:25) Ceftriaxone 1 Gm Pre-Mix (Rocephin 1 Gm (04/22/22 10:30) Medications Given in ED Current Medications Medications Dose Ordered Sig/Darek Route Start Time Stop Time Status Last Admin Dose Admin Ceftriaxone Sodium/Dextrose 50 ml @ 100 mls/hr ONCE ONCE IV 04/22/22 10:30 04/22/22 10:59 DC 04/22/22 10:29 100 MLS/HR Lidocaine HCl 20 ml ONCE ONCE INJ 04/22/22 09:45 04/22/22 09:46 DC 04/22/22 10:29 1 ML Vital Signs/I&O 04/22/22 04/22/22 04/22/22 08:35 09:52 11:19 Temp 36.3 36.3 Pulse 57 60 68 59 72 Resp 16 16 B/P (MAP) 89/69 (76) 115/78 (90) 148/107 117/59 (78) 112/91 (98) Pulse Ox 98 98 O2 Delivery Room Air Room Air Progress Progress Note : Time: 10:36 Progress Note Gram Rocephin. Straight cath to drain his bladder that had 400 cc in it. We will put him out on cefdinir twice daily. Diagnostic Imaging Diagonstic Imaging: Xray Plain Films/CT/US/NM/MRI: chest Comments [facility] [place] [place] NAME: AYANA MCMULLEN [facility] REC#: [id number] PT STATUS: REG ER : 1935 PHYSICIAN: JOB FRANCIS MD ADMIT DATE: 04/22/22/ER Draft Date of Exam:04/22/22 RIBS, LEFT 2-3 VIEWS EXAM: RIBS, LEFT 2-3 VIEWS INDICATION: Left rib injury. COMPARISON: None. FINDINGS: Acute appearing mildly displaced left lateral 9th rib fracture. No other fracture is identified. No pleural effusion or pneumothorax is seen. Mild atelectasis in the left lung base. IMPRESSION: Acute mildly displaced left lateral 9th rib fracture. Dictated on workstation # [id number] Dict: 04/22/22918 Trans: 04/22/22925 [facility] [id number] Interpreted by: KITTY BARNES MD Electronically signed by: Reviewed: Reviewed by Nm Diagonstic Imaging: CT Plain Films/CT/US/NM/MRI: c-spine, head Comments [facility] [place] [place] NAME: AYANA MCMULLEN [facility] REC#: [id number] PT STATUS: REG ER : 1935 PHYSICIAN: JOB FRANCIS MD ADMIT DATE: 04/22/22/ER Draft Date of Exam:04/22/22 CT HEAD/FACE/CERVICAL WO PROCEDURE: CT head, face, and cervical spine without contrast. TECHNIQUE: Multiple contiguous axial images were obtained through the head, neck, and facial bones without the use of intravenous contrast. Sagittal and coronal reformations through the cervical spine and facial bones were also performed. Auto Exposure Controls were utilized during the CT exam to meet ALARA standards for radiation dose reduction. INDICATION: Head and facial injury. Fall. COMPARISON: None. FINDINGS: CT head: Advanced generalized parenchymal volume loss. No intracranial hemorrhage, mass effect, hydrocephalus or extra-axial fluid collections. No CT evidence of a territorial infarction. The skull base and calvarium are intact. Mastoids are clear. CT maxillofacial: No maxillofacial fractures. Normal alignment of the temporomandibular joints. Mucosal thickening involving the maxillary and sphenoid sinuses. CT cervical spine: Grade 1 anterolisthesis of C3 on C4 and C4 on C5. Vertebral body heights are preserved. No fractures. Moderate to advanced spondylotic changes are greatest at C5-C7. Advanced atherosclerotic calcifications in the carotid bifurcations. Lung apices are clear. IMPRESSION: 1. No acute intracranial or cervical spine CT findings. No maxillofacial fractures. 2. Moderate to advanced spondylotic changes in the cervical spine. 3. Advanced cerebral and cerebellar parenchymal volume loss. 4. Mild mucosal thickening in the paranasal sinuses. Dictated on workstation # [id number] Dict: 04/22/22932 Trans: 04/22/22942 CV [id number] Interpreted by: KITTY BARNES MD Electronically signed by: Reviewed: Reviewed by Me Diagonstic Imaging: Xray Plain Films/CT/US/NM/MRI: elbow Comments [facility] [place] NAME: AYANA MCMULLEN [facility] REC#: [id number] PT STATUS: REG ER : 1935 PHYSICIAN: JOB FRANCIS MD ADMIT DATE: 04/22/22/ER Draft Date of Exam:04/22/22 ELBOW, LEFT, 3 VIEWS INDICATION: Elbow pain. EXAMINATION: Left elbow 04/22/2022 FINDINGS: 3 views of the elbow. There are no fractures or dislocations. Joint spaces appear preserved. Soft tissues unremarkable. Lateral view somewhat limited due to positioning. A joint effusion cannot be excluded. IMPRESSION: Limitations as above. No acute fractures appreciated. Dictated on workstation # [id number] Dict: 04/22/2212 Trans: 04/22/22913 CV [id number] Interpreted by: REKHA ZUÑIGA MD Electronically signed by: Reviewed: Reviewed by Me Departure Impression Primary Impression: Fall Qualified Codes: W19.XXXA - Unspecified fall, initial encounter Additional Impressions: Skin tear of left elbow without complication Qualified Codes: S51.012A - Laceration without foreign body of left elbow, initial encounter Laceration of chin without complication Qualified Codes: S01.81XA - Laceration without foreign body of other part of head, initial encounter Urinary tract infection Qualified Codes: N30.00 - Acute cystitis without hematuria Disposition: HOME, SELF-CARE Condition: Stable Departure-Patient Inst. Decision time for Depature: 10:37 Referrals: JOANN CORNELIUS MD (PCP/Family) Primary Care Physician Patient Instructions: Laceration Repair With [place] ED, Urinary Tract Infection, Adult (DC) Add. Discharge Instructions: Drink plenty of fluids. Cefdinir 300 mg twice a day by mouth for a week. Return to the ER for significantly worsening symptoms. Remove the kiet in 7 days. All discharge instructions reviewed with patient and/or family. Voiced understanding. Scripts Cefdinir (Cefdinir) 300 Mg Capsule 300 MG PO BID, #14 CAP 0 Refills Prov: JOB FRANCIS 04/22/22 Copy Copies To 1: JOANN CORNELIUS MD, TITUS J Apr 22, 2022 08:45
--- NOTE | 2022-04-22 09:15 | Diagnostic Imaging Report ---
INDICATION: Elbow pain. EXAMINATION: Left elbow 04/22/2022 FINDINGS: 3 views of the elbow. There are no fractures or dislocations. Joint spaces appear preserved. Soft tissues unremarkable. Lateral view somewhat limited due to positioning. A joint effusion cannot be excluded. IMPRESSION: Limitations as above. No acute fractures appreciated. Dictated by: Dictated on workstation # [id number]
--- NOTE | 2022-04-22 09:27 | Diagnostic Imaging Report ---
EXAM: RIBS, LEFT 2-3 VIEWS INDICATION: Left rib injury. COMPARISON: None. FINDINGS: Acute appearing mildly displaced left lateral 9th rib fracture. No other fracture is identified. No pleural effusion or pneumothorax is seen. Mild atelectasis in the left lung base. IMPRESSION: Acute mildly displaced left lateral 9th rib fracture. Dictated by: Dictated on workstation # [id number]
[2022-04-22 09:33] LABS: BASOPHILS # (AUTO) 0.1 10^3/uL (0.0-0.1); BASOPHILS % (AUTO) 1 % (0-10); EOSINOPHILS # (AUTO) 0.1 10^3/uL (0.0-0.3); EOSINOPHILS % (AUTO) 1 % (0-10); HEMATOCRIT 41 % (40-54); HEMOGLOBIN 13.4 g/dL (13.3-17.7); LYMPHOCYTES % (AUTO) 10 % (12-44); MEAN CORPUSCULAR HEMOGLOBIN 31 pg (25-34); MEAN CORPUSCULAR HGB CONC 33 g/dL (32-36); MEAN CORPUSCULAR VOLUME 96 fL (80-99); MEAN PLATELET VOLUME 10.2 fL (9.0-12.2); MONOCYTES # (AUTO) 0.8 10^3/uL (0.0-1.0); MONOCYTES % (AUTO) 8 % (0-12); NEUTROPHILS # (AUTO) 8.2 10^3/uL (1.8-7.8); NEUTROPHILS % (AUTO) 80 % (42-75); PLATELET COUNT 178 10^3/uL (130-400); WHITE BLOOD COUNT 10.2 10^3/uL (4.3-11.0)
[2022-04-22 09:34] LABS: BILIRUBIN,URINE NEGATIVE (NEGATIVE); CLARITY,URINE CLEAR; COLOR,URINE YELLOW; GLUCOSE, URINE (UA) NEGATIVE (NEGATIVE); KETONES,URINE NEGATIVE (NEGATIVE); LEUKOCYTE ESTERASE ,URINE 2+ (NEGATIVE); NITRITE,URINE POSITIVE (NEGATIVE); PROTEIN,URINE NEGATIVE (NEGATIVE)
[2022-04-22] MEDS ORDERED: LIDOCAINE 1% INJ 20 ML VIAL ONE (09:40)
[2022-04-22 09:42] LABS: ALBUMIN 3.6 GM/DL (3.2-4.5); POTASSIUM 3.6 MMOL/L (3.6-5.0)
[2022-04-22 09:44] LABS: CALCIUM 9.1 MG/DL (8.5-10.1)
--- NOTE | 2022-04-22 09:44 | Diagnostic Imaging Report ---
PROCEDURE: CT head, face, and cervical spine without contrast. TECHNIQUE: Multiple contiguous axial images were obtained through the head, neck, and facial bones without the use of intravenous contrast. Sagittal and coronal reformations through the cervical spine and facial bones were also performed. Auto Exposure Controls were utilized during the CT exam to meet ALARA standards for radiation dose reduction. INDICATION: Head and facial injury. Fall. COMPARISON: None. FINDINGS: CT head: Advanced generalized parenchymal volume loss. No intracranial hemorrhage, mass effect, hydrocephalus or extra-axial fluid collections. No CT evidence of a territorial infarction. The skull base and calvarium are intact. Mastoids are clear. CT maxillofacial: No maxillofacial fractures. Normal alignment of the temporomandibular joints. Mucosal thickening involving the maxillary and sphenoid sinuses. CT cervical spine: Grade 1 anterolisthesis of C3 on C4 and C4 on C5. Vertebral body heights are preserved. No fractures. Moderate to advanced spondylotic changes are greatest at C5-C7. Advanced atherosclerotic calcifications in the carotid bifurcations. Lung apices are clear. IMPRESSION: 1. No acute intracranial or cervical spine CT findings. No maxillofacial fractures. 2. Moderate to advanced spondylotic changes in the cervical spine. 3. Advanced cerebral and cerebellar parenchymal volume loss. 4. Mild mucosal thickening in the paranasal sinuses. Dictated by: Dictated on workstation # [id number]
[2022-04-22 09:45] LABS: BACTERIA,URINE LARGE /HPF; RBC,URINE RARE /HPF; SQUAMOUS EPITHELIAL CELL,UR RARE /HPF; TOTAL PROTEIN 5.9 GM/DL (6.4-8.2)
[2022-04-22] MEDS ORDERED: LIDOCAINE 1% INJ 20 ML VIAL INJ ONE (09:45)
[2022-04-22 09:47] LABS: BILIRUBIN,TOTAL 1.2 MG/DL (0.1-1.0)
[2022-04-22 09:48] LABS: CREATININE SERUM 0.87 MG/DL (0.60-1.30)
[2022-04-22 09:52] VITALS: BP_SYST 112; BP_SYST 115; BP_SYST 117; BP_DIAS 59; BP_DIAS 78; BP_DIAS 91
[2022-04-22] MEDS ORDERED: cefTRIAXone 1 GM PRE-MIX 50 ML IV ONE (10:30)
[2022-04-22] MEDS ORDERED: CEFD300C3 PO (10:38)
[2022-04-22 11:19] VITALS: BP 148/107
== END 2022-04-22 11:19 | disposition home or self-care (01) ==
LOC: EDUNIT# 08:14 → ER 08:19
DX: S01.81XA Laceration without foreign body of other part of head, initial encounter (principal); S51.012A Laceration without foreign body of left elbow, initial encounter; N39.0 Urinary tract infection, site not specified; Z79.82 Long term (current) use of aspirin; Z79.899 Other long term (current) drug therapy; W19.XXXA Unspecified fall, initial encounter; Y92.129 Unspecified place in nursing home as the place of occurrence of the external cause
CPT/HCPCS: 36415; 51701; 70450; 70486; 71100; 72125; 73080; 80053; 81000; 85025; 87077; 87088